=== PATIENT | female | born 1980 | race Caucasian/White ===

== ENCOUNTER 2016-05-08 22:50 | Emergency (ER) | payer OTHER ==
[2016-05-08 22:57] VITALS: RESP 18
[2016-05-08] MEDS ORDERED: ONDANSETRON 4 MG/2 ML VIAL IVP STA (23:06)
[2016-05-08] MEDS ORDERED: MAG HYDROX/AL HYDROX/SIMETH 30 ML, HYOSCYAMINE ELIXIR 10 ML, CIMETIDINE HCL 300 MG PO STA ×3 (23:06)
[2016-05-08] MEDS ORDERED: SODIUM CHLORIDE 0.9% 1,000 ML IV STA (23:06)
--- NOTE | 2016-05-08 23:08 | ED ---
Abdominal Pain HPI - General Chief Complaint: Abdominal Pain Stated Complaint: abdominal pain Time Seen by Provider: 05/08/16 23:01 Source: patient, RN notes reviewed Mode of arrival: ambulatory Limitations: no limitations - History of Present Illness Initial Comments: 36-year-old female presents emergency department chief complaint of epigastric and right upper quadrant abdominal pain. Patient states she's had this for about a week. Patient has a history of acid reflux. She states that since that her typical acid reflux just discontinuing burning pain in sharp stabbing pains. Patient states she's been nauseated without any vomiting. Patient denies any high fevers. Patient states that she seems to be getting worse so she thought that she reevaluated. Patient states that she tried her and after medication with no improvement to her symptoms. Patient states that she was concerned due to her continued pain and discomfort so she thought that she should be evaluated.Patient denies any recent fever, chills, shortness of breath , chest pain, back pain, vomiting, numbness or tingling, dysuria or hematuria, constipation or diarrhea, headaches or visual changes, or any other current symptoms. - Related Data Home Medications Medication Instructions Recorded Confirmed Ibuprofen [Motrin] 800 mg PO DAILY 09/07/13 05/08/16 Lisinopril [Zestril] 10 mg PO DAILY 09/07/13 05/08/16 Triamterene/Hydrochlorothiazid 1 tab PO DAILY 09/07/13 05/08/16 [Triamterene-Hctz 37.5-25 mg Tb] Vitamin B Complex 1 cap PO DAILY 09/30/13 05/08/16 Atenolol [Tenormin] 50 mg PO DAILY 05/08/16 05/08/16 Omeprazole 40 mg PO DAILY 05/08/16 05/08/16 Simethicone [Gas-X] 250 mg PO QAM 05/08/16 05/08/16 Allergies Allergy/AdvReac Type Severity Reaction Status Date / Time No Known Allergies Allergy Verified 05/08/16 23:12 Review of Systems ROS Statement: Those systems with pertinent positive or pertinent negative responses have been documented in the HPI. ROS Other: All systems not noted in ROS Statement are negative. Past Medical History Past Medical History: GERD/Reflux, Hypertension Additional Past Medical History / Comment(s): irregular menses History of Any Multi-Drug Resistant Organisms: None Reported Past Surgical History: Section, Tubal Ligation Past Anesthesia/Blood Transfusion Reactions: Motion Sickness Past Psychological History: No Psychological Hx Reported Smoking Status: Current every day smoker Past Alcohol Use History: None Reported Past Drug Use History: None Reported General Exam - General Exam Comments Initial Comments: General: The patient is awake and alert, in no distress, and does not appear acutely ill. Eye: Pupils are equal, round and reactive to light, extra-ocular movements are intact; there is normal conjunctiva bilaterally. No signs of icterus. Ears, nose, mouth and throat: There are moist mucous membranes and no oral lesions. Neck: The neck is supple, there is no tenderness. Cardiovascular: There is a regular rate and rhythm. No murmur, rub or gallop is appreciated. Respiratory: Lungs are clear to auscultation, respirations are non-labored, breath sounds are equal. No wheezes, stridor, rales, or rhonchi. Gastrointestinal: Soft, non-distended, tenderness in the right upper quadrant of the abdomen without masses or organomegaly noted. There is no rebound or guarding present. No CVA tenderness. Bowel sounds are unremarkable. Back: There is no tenderness to palpation in the midline. There is no obvious deformity. No rashes noted. Musculoskeletal: Normal ROM, no tenderness, There is no pedal edema. There is no calf tenderness or swelling. Sensation intact. Pulses equal bilaterally 2+. Neurological: CN II-XII intact, There are no obvious motor or sensory deficits. Coordination appears grossly intact. Speech is normal. Skin: Skin is warm and dry and no rashes or lesions are noted. Psychiatric: Cooperative, appropriate mood & affect, normal judgment. Limitations: no limitations Course Vital Signs 05/08/16 22:55 Temperature 98.3 F Pulse Rate 98 Respiratory 18 Rate Blood Pressure 143/67 O2 Sat by Pulse 97 Oximetry - Reevaluation(s) Reevaluation #1: 05/09/16 01:11 Patient was reassessed and states that she is feeling better. Medical Decision Making - Medical Decision Making 36-year-old female presents emergency Department chief complaint of right upper quadrant abdominal pain. At this time patient's ultrasound and lab work and x- rays are reviewed. This time patient does appear to have cholelithiasis with sludge. We discussed this and there is no white count there is no fever or there is no signs of acute cholecystitis. This time she can go home which she needs close follow-up with surgery. We did discuss return parameters were discussed this could worsen and she could eventually need to have surgery. The patient stated that she understood she does feel comfortable discharging home and all her questions have been answered. She will be discharged. - Lab Data Result diagrams: 05/08/16 23:55 05/08/16 23:55 Lab Results 05/08/16 05/08/16 05/08/16 Range/Units 23:50 23:55 23:55 WBC 7.8 (3.8-10.6) k/uL RBC 5.07 (3.80-5.40) m/uL Hgb 14.7 (11.4-16.0) gm/dL Hct 44.1 (34.0-46.0) % MCV 87.1 (80.0-100.0) fL MCH 28.9 (25.0-35.0) pg MCHC 33.2 (31.0-37.0) g/dL RDW 12.2 (11.5-15.5) % Plt Count 221 (150-450) k/uL Neutrophils % 57 % Lymphocytes % 32 % Monocytes % 5 % Eosinophils % 3 % Basophils % 0 % Neutrophils # 4.5 (1.3-7.7) k/uL Lymphocytes # 2.5 (1.0-4.8) k/uL Monocytes # 0.4 (0-1.0) k/uL Eosinophils # 0.2 (0-0.7) k/uL Basophils # 0.0 (0-0.2) k/uL Sodium 139 (137-145) mmol/L Potassium 4.0 (3.5-5.1) mmol/L Chloride 106 (98-107) mmol/L Carbon Dioxide 22 (22-30) mmol/L Anion Gap 11 mmol/L BUN 9 (7-17) mg/dL Creatinine 0.80 (0.52-1.04) mg/dL Est GFR (MDRD) Af Amer >60 (>60 ml/min/1.73 sqM) Est GFR (MDRD) Non-Af >60 (>60 ml/min/1.73 sqM) Glucose 99 (74-99) mg/dL Calcium 9.7 (8.4-10.2) mg/dL Total Bilirubin 0.4 (0.2-1.3) mg/dL AST 26 (14-36) U/L ALT 46 (9-52) U/L Alkaline Phosphatase 66 (38-126) U/L Total Protein 7.1 (6.3-8.2) g/dL Albumin 4.2 (3.5-5.0) g/dL Amylase 51 (30-110) U/L Lipase 112 (23-300) U/L Urine Color Yellow Urine Appearance Cloudy H (Clear) Urine pH 5.5 (5.0-8.0) Ur Specific [place] 1.012 (1.001-1.035) Urine Protein Negative (Negative) Urine Glucose (UA) Negative (Negative) Urine Ketones Negative (Negative) Urine Blood Small H (Negative) Urine Nitrate Negative (Negative) Urine Bilirubin Negative (Negative) Urine Urobilinogen <2.0 (<2.0) mg/dL Ur Leukocyte Esterase Negative (Negative) Urine RBC 7 H (0-5) /hpf Urine WBC 6 H (0-5) /hpf Ur Squamous Epith Cells 4 (0-4) /hpf Urine Bacteria Moderate H (None) /hpf Urine Mucus Rare H (None) /hpf - Radiology Data Radiology results: report reviewed, image reviewed Disposition Clinical Impression: Cholelithiasis, GERD (gastroesophageal reflux disease) Disposition: HOME SELF-CARE Condition: Stable Instructions: Gallstones (ED), Gastroesophageal Reflux Disease (ED) Additional Instructions: Please use medication as discussed. Please follow up with family doctor if symptoms have not improved over the next two days. Please return to the emergency room if your symptoms increase or worsen or for any other concerns. Referrals: Chel Mayes MD [Primary Care Provider] - 1-2 days Sandy Hernandez DO [Doctor of Osteopathic Medicine] - 1-2 days Time of Disposition: 01:12
[2016-05-09 00:04] LABS: Appearance,Urine Cloudy (Clear); Bacteria,Urine Moderate /hpf; Bilirubin,Urine Negative (Negative); Glucose,Urine (UA) Negative (Negative); Ketones,Urine Negative (Negative); Leukocyte Esterase,Urine Negative (Negative); Mucus,Urine Rare /hpf; Nitrite,Urine Negative (Negative); PH, Urine 5.5 (5.0-8.0); Particle Count 14798; Protein,Urine Negative (Negative); RBC,Urine 7 /hpf (0-5); Specific Gravity,Urine 1.012 (1.001-1.035); Squamous Epithelial Cell,Urine 4 /hpf (0-4); UA Billing (MACRO vs. MICRO) MICRO; Urobilinogen,Urine <2.0 mg/dL (<2.0); WBC,Urine 6 /hpf (0-5)
[2016-05-09 00:06] LABS: Basophils % (A) 0 %; CH 29.5; Eosinophils # (A) 0.2 k/uL (0-0.7); Eosinophils % (A) 3 %; HCT 44.1 % (34.0-46.0); HDW 2.34; HGB 14.7 gm/dL (11.4-16.0); Luc # (Auto) 0.19; Luc % (Auto) 2; Lymphocytes # (A) 2.5 k/uL (1.0-4.8); Lymphocytes % (A) 32 %; MCH 28.9 pg (25.0-35.0); MCHC 33.2 g/dL (31.0-37.0); MCV 87.1 fL (80.0-100.0); Mean Platelet Volume 7.1; Monocytes # (A) 0.4 k/uL (0-1.0); Monocytes % (A) 5 %; Neutrophils # (A) 4.5 k/uL (1.3-7.7); Neutrophils % (A) 57 %; RBC 5.07 m/uL (3.80-5.40); RDW 12.2 % (11.5-15.5); WBC 7.8 k/uL (3.8-10.6); WBC (Perox) 7.79
[2016-05-09 00:22] LABS: ALT 46 U/L (9-52); AST 26 U/L (14-36); Alkaline Phosphatase 66 U/L (38-126); Amylase 51 U/L (30-110); Anion Gap 11 mmol/L; Blood Urea Nitrogen 9 mg/dL (7-17); Calcium 9.7 mg/dL (8.4-10.2); Carbon Dioxide 22 mmol/L (22-30); Chloride 106 mmol/L (98-107); Glucose 99 mg/dL (74-99); Non-African American GFR(MDRD) >60 (>60 ml/min/1.73 sqM); Sodium 139 mmol/L (137-145); Total Bilirubin 0.4 mg/dL (0.2-1.3); Total Protein 7.1 g/dL (6.3-8.2)
--- NOTE | 2016-05-09 00:47 | XR ---
EXAM: XR Abdomen Complete, 2 or More frontal Views. CLINICAL HISTORY: Reason: Pain TECHNIQUE: Frontal views of the abdomen/pelvis with upright view of the abdomen. COMPARISON: No relevant prior studies available. FINDINGS: Gastrointestinal tract: Nonspecific bowel gas pattern. No dilation. Bones/joints: Mild to moderate degenerative changes in the visualized osseous structures.. IMPRESSION: Nonspecific bowel gas pattern
--- NOTE | 2016-05-09 01:02 | US ---
EXAM: US Abdomen Limited, Right Upper Quadrant. CLINICAL HISTORY: Abdominal Pain TECHNIQUE: Real-time ultrasound of the right upper quadrant with image documentation. COMPARISON: No relevant prior studies available. FINDINGS: Liver: Unremarkable. No mass. No intrahepatic bile duct dilation. Gallbladder: Large amount of sludge mixed with stones filling nearly the entire gallbladder. Gallbladder wall measures about 3 mm in maximal thickness. Common bile duct: Unremarkable as visualized. No stones. No dilation. Pancreas: Unremarkable as visualized. Right kidney: Right kidney measures about 10 cm in long axis. No stones. No hydronephrosis. IMPRESSION: Large amount of sludge mixed with stones filling nearly the entire gallbladder.
[2016-05-09 01:12] VITALS: BP 144/54; PULSE 88; TEMP 98.8
== END 2016-05-09 01:14 | disposition home or self-care (01) ==
LOC: EC 22:50
DX: K80.20 Calculus of gallbladder without cholecystitis without obstruction (principal); K21.9 Gastro-esophageal reflux disease without esophagitis; Z79.899 Other long term (current) drug therapy; I10 Essential (primary) hypertension; F17.200 Nicotine dependence, unspecified, uncomplicated
CPT/HCPCS: 36415; 80053; 82150; 83690; 85025; 81001; 87040; 74020; 76705; 96374; 96361 ×2; 99284; J2405

== ENCOUNTER 2016-09-13 21:22 | Inpatient (IN) | payer OTHER ==
[2016-09-13] MEDS ORDERED: ACETAMINOPHEN TAB 500 MG TAB PO STA (22:00)
[2016-09-13] MEDS ORDERED: SULFAMETH-TMP DS STARTER PACK 2 TAB BTL PO STA (22:01)
[2016-09-13 22:39] LABS: Anion Gap 12 mmol/L; Basophils # (A) 0.1 k/uL (0-0.2); Basophils % (A) 0 %; Blood Urea Nitrogen 10 mg/dL (7-17); CH 28.5; CHCM 34.4; Carbon Dioxide 22 mmol/L (22-30); Chloride 103 mmol/L (98-107); Eosinophils % (A) 0 %; Glucose 121 mg/dL (74-99); HCT 43.8 % (34.0-46.0); HDW 2.48; HGB 15.4 gm/dL (11.4-16.0); Luc # (Auto) 0.05; Luc % (Auto) 0; Lymphocytes # (A) 0.5 k/uL (1.0-4.8); Lymphocytes % (A) 3 %; MCH 29.4 pg (25.0-35.0); MCHC 35.2 g/dL (31.0-37.0); MCV 83.5 fL (80.0-100.0); Mean Platelet Volume 7.2; Monocytes # (A) 0.4 k/uL (0-1.0); Monocytes % (A) 3 %; Neutrophils % (A) 94 %; Non-African American GFR(MDRD) >60 (>60 ml/min/1.73 sqM); Potassium 4.9 mmol/L (3.5-5.1); RBC 5.25 m/uL (3.80-5.40); RDW 12.6 % (11.5-15.5); Sodium 137 mmol/L (137-145); WBC 17.1 k/uL (3.8-10.6); WBC (Perox) 16.08
[2016-09-13] MEDS ORDERED: VANCOMYCIN 1,000 MG in SODIUM CHLORIDE 0.9% 250 ML IVPB STA (22:57)
--- NOTE | 2016-09-13 23:39 | ED ---
General Adult HPI - General Chief complaint: Skin/Abscess/Foreign Body Stated complaint: Cellulitis Time Seen by Provider: 09/13/16 21:38 Source: patient Mode of arrival: ambulatory Limitations: no limitations - History of Present Illness Initial comments: Jasmina Nur is a 36-year-old female who presents to the ED for evaluation of cellulitis of the right lower extremity. Patient reports that yesterday she was on the ground in her kitchen running extension cord through her cabinet. She reports that when she woke this morning she noticed redness of her foot. She has a history of cellulitis which is required hospital admission and IV antibiotics in the past so she immediately wrapped her foot to control the swelling. She reports that throughout the day the erythema has spread from her ankle up her calf, which prompted her to come to the emergency department for further evaluation. She reports that she has felt chilled throughout the day today, she denies any fevers, nausea, vomiting, abdominal pain or change in bowel or bladder habits. She reports her last cellulitis is greater than 2 years ago. She denies any trauma to the foot or toenails. She denies any recent injuries or infections. - Related Data Home Medications Medication Instructions Recorded Confirmed Ibuprofen [Motrin] 800 mg PO DAILY 09/07/13 09/13/16 Lisinopril [Zestril] 10 mg PO DAILY 09/07/13 09/13/16 Triamterene/Hydrochlorothiazid 1 tab PO DAILY 09/07/13 09/13/16 [Triamterene-Hctz 37.5-25 mg Tb] Vitamin B Complex 1 cap PO DAILY 09/30/13 09/13/16 Atenolol [Tenormin] 50 mg PO DAILY 05/08/16 09/13/16 Omeprazole 40 mg PO DAILY 05/08/16 09/13/16 Simethicone [Gas-X] 250 mg PO QAM 05/08/16 09/13/16 Allergies Allergy/AdvReac Type Severity Reaction Status Date / Time No Known Allergies Allergy Verified 09/13/16 21:37 Review of Systems ROS Statement: Those systems with pertinent positive or pertinent negative responses have been documented in the HPI. ROS Other: All systems not noted in ROS Statement are negative. Constitutional: Reports: chills Respiratory: Denies: cough Cardiovascular: Denies: chest pain, palpitations Endocrine: Reports: fatigue Gastrointestinal: Denies: nausea, vomiting Genitourinary: Denies: urgency, dysuria Musculoskeletal: Denies: back pain Skin: Reports: rash, lesions, change in color Neurological: Denies: weakness, confusion Psychiatric: Denies: anxiety, depression Hematological/Lymphatic: Denies: easy bleeding, easy bruising Past Medical History Past Medical History: GERD/Reflux, Hypertension, Skin Disorder Additional Past Medical History / Comment(s): irregular menses, cellulitis History of Any Multi-Drug Resistant Organisms: None Reported Past Surgical History: Section, Tubal Ligation Additional Past Surgical History / Comment(s): novasure Past Anesthesia/Blood Transfusion Reactions: Motion Sickness Past Psychological History: No Psychological Hx Reported Smoking Status: Current every day smoker Past Alcohol Use History: None Reported Past Drug Use History: None Reported General Exam Limitations: no limitations General appearance: alert, in no apparent distress, other (Morbidly obese, appears older than stated age.) Head exam: Present: atraumatic, normocephalic, normal inspection Eye exam: Present: normal appearance, PERRL, EOMI. Absent: scleral icterus, conjunctival injection, periorbital swelling ENT exam: Present: normal exam, mucous membranes moist Neck exam: Present: normal inspection. Absent: tenderness, meningismus, lymphadenopathy Respiratory exam: Present: wheezes (Scant wheezes) Cardiovascular Exam: Present: regular rate, normal rhythm, normal heart sounds. Absent: systolic murmur, diastolic murmur, rubs, gallop, clicks GI/Abdominal exam: Present: soft, normal bowel sounds. Absent: distended, tenderness, guarding, rebound, rigid Rectal exam: Present: deferred Extremities exam: Present: full ROM Neurological exam: Present: alert, oriented X3, CN II-XII intact Skin exam: Present: warm, erythema, petechiae, other (Erythema of the right lower extremity circumferentially to the mid calf. Some petechia noted. Skin is edematous and weeping clear fluid.). Absent: normal color Course Vital Signs 09/13/16 09/13/16 21:23 23:00 Temperature 100.2 F H 98.9 F Pulse Rate 78 95 Respiratory 16 Rate Blood Pressure 150/85 138/78 O2 Sat by Pulse 100 99 Oximetry - Reevaluation(s) Reevaluation #1: Patient was reevaluated and a surgical marking pen was used to marked the borders of cellulitis. 09/13/16 22:29 Reevaluation #2: Patient stating she is anxious to leave, advised her that we are still awaiting lab results. 09/13/16 23:00 Reevaluation #3: Laboratory results were discussed with patient who is agreeable with plan for discharge home. There's been no change in the cellulitis since admission. Patient continues to complain of feeling chilled and feverish. 09/13/16 23:20 Medical Decision Making - Medical Decision Making Patient seen and examined, history obtained from patient Physical exam concerning for cellulitis circumferentially of the right lower extremity to the mid calf with petechia Patient noted to have an oral temperature of 100.2, no tachycardia or other surgical. Noted Labs including blood cultures were ordered Patient eager for discharge home, by mouth Bactrim ordered upon arrival. With plan for likely discharge. Labs his altered with significant leukocytosis with neutrophilia, these results were discussed with the patient was agreeable to plan for admission for IV antibiotics. IV vancomycin was ordered given patient's history of MRSA infections. She care was discussed with Monica of the [facility] hospitalist group. She except the patient to observation for rapidly progressing cellulitis requiring IV antibiotics. - Lab Data Result diagrams: 09/13/16 22:10 09/13/16 22:10 Lab Results 09/13/16 09/13/16 Range/Units 22:10 22:10 WBC 17.1 H (3.8-10.6) k/uL RBC 5.25 (3.80-5.40) m/uL Hgb 15.4 (11.4-16.0) gm/dL Hct 43.8 (34.0-46.0) % MCV 83.5 (80.0-100.0) fL MCH 29.4 (25.0-35.0) pg MCHC 35.2 (31.0-37.0) g/dL RDW 12.6 (11.5-15.5) % Plt Count 206 (150-450) k/uL Neutrophils % 94 % Lymphocytes % 3 % Monocytes % 3 % Eosinophils % 0 % Basophils % 0 % Neutrophils # 16.0 H (1.3-7.7) k/uL Lymphocytes # 0.5 L (1.0-4.8) k/uL Monocytes # 0.4 (0-1.0) k/uL Eosinophils # 0.0 (0-0.7) k/uL Basophils # 0.1 (0-0.2) k/uL Sodium 137 (137-145) mmol/L Potassium 4.9 (3.5-5.1) mmol/L Chloride 103 (98-107) mmol/L Carbon Dioxide 22 (22-30) mmol/L Anion Gap 12 mmol/L BUN 10 (7-17) mg/dL Creatinine 1.00 (0.52-1.04) mg/dL Est GFR (MDRD) Af Amer >60 (>60 ml/min/1.73 sqM) Est GFR (MDRD) Non-Af >60 (>60 ml/min/1.73 sqM) Glucose 121 H (74-99) mg/dL Calcium 10.0 (8.4-10.2) mg/dL Disposition Clinical Impression: Cellulitis of right lower leg Disposition: ADMITTED IP TO THIS HOSP Referrals: Chel Mayes MD [Primary Care Provider] - 1-2 days
[2016-09-13] MEDS ORDERED: NALOXONE 0.4 MG/ML 1 ML VIAL IV PRN (23:53)
[2016-09-14 01:33] VITALS: BMI 45.9
[2016-09-14] MEDS: IBUPROFEN 400 MG TAB PO PRN ×3 (01:58→17:29)
[2016-09-14] MEDS: ACETAMINOPHEN TAB 325 MG TAB PO PRN ×2 (04:10→21:14)
[2016-09-14 07:08] LABS: Basophils % (A) 0 %; CH 27.8; Eosinophils % (A) 0 %; HCT 40.1 % (34.0-46.0); HDW 2.43; HGB 13.5 gm/dL (11.4-16.0); Luc # (Auto) 0.07; Luc % (Auto) 1; Lymphocytes # (A) 0.6 k/uL (1.0-4.8); Lymphocytes % (A) 5 %; MCH 28.6 pg (25.0-35.0); MCHC 33.8 g/dL (31.0-37.0); MCV 84.7 fL (80.0-100.0); Mean Platelet Volume 7.3; Monocytes # (A) 0.3 k/uL (0-1.0); Monocytes % (A) 2 %; Neutrophils # (A) 13.1 k/uL (1.3-7.7); Neutrophils % (A) 93 %; RBC 4.73 m/uL (3.80-5.40); RDW 12.3 % (11.5-15.5); WBC 14.1 k/uL (3.8-10.6); WBC (Perox) 14.84
[2016-09-14 07:27] LABS: Calcium 8.8 mg/dL (8.4-10.2); Potassium 4.3 mmol/L (3.5-5.1)
[2016-09-14] MEDS: ATENOLOL 50 MG TAB PO SCH (11:38)
[2016-09-14] MEDS: B COMPLEX-VIT C-VIT E-ZINC 1 EACH TAB PO SCH (11:38)
[2016-09-14] MEDS: LISINOPRIL 10 MG TAB PO SCH (11:38)
[2016-09-14] MEDS: SIMETHICONE 80 MG CHEWABLE PO SCH (11:39)
[2016-09-14] MEDS: PANTOPRAZOLE 40 MG TABLET PO SCH (11:39)
[2016-09-14] MEDS: TRIAMTERENE-HCTZ 37.5-25MG 1 EACH TAB PO SCH (11:39)
[2016-09-14] MEDS: ceFAZolin 2 GM in SODIUM CHLORIDE 0.9% 100 ML IVPB SCH (15:28)
--- NOTE | 2016-09-14 18:10 | P.HPIM ---
History of Present Illness H&P Date: 09/14/16 His is a 36-year-old female that came in to the hospital with complains of right lower extremity tenderness and erythema. Patient states that she was working on her home trying to punch a whole into the wall in order to rule out a cable through. Patient was laying on the ground for about 3 hours States that she woke up the next day after that noted significant erythema and tenderness to her right lower extremity associated with edema Patient also stated to have some chills however no recorded fevers were noted Patient denies having any headaches blurry vision chest pain difficulty breathing diarrhea nausea vomiting urinary urgency or frequency Patient has had a previous episode of cellulitis however states that it was not MRSA The demarcated line was noted however slightly worsen since admission States to be feeling slightly better however does report some tenderness in the right lower extremity Review of Systems All systems: negative (Noted in HPI) Past Medical History Past Medical History: GERD/Reflux, Hypertension, Skin Disorder Additional Past Medical History / Comment(s): irregular menses, cellulitis History of Any Multi-Drug Resistant Organisms: None Reported Past Surgical History: Section, Tubal Ligation Additional Past Surgical History / Comment(s): lexis Past Anesthesia/Blood Transfusion Reactions: Motion Sickness Past Psychological History: No Psychological Hx Reported Smoking Status: Current every day smoker - Past Family History Mother Family Medical History: Diabetes Mellitus, Myocardial Infarction (NM) Additional Family Medical History / Comment(s): Lupus Medications and Allergies Home Medications Medication Instructions Recorded Confirmed Type Ibuprofen [Motrin] 800 mg PO DAILY 09/07/13 09/13/16 History Lisinopril [Zestril] 10 mg PO DAILY 09/07/13 09/13/16 History Triamterene/Hydrochlorothiazid 1 tab PO DAILY 09/07/13 09/13/16 History [Triamterene-Hctz 37.5-25 mg Tb] Vitamin B Complex 1 cap PO DAILY 09/30/13 09/13/16 History Atenolol [Tenormin] 50 mg PO DAILY 05/08/16 09/13/16 History Omeprazole 40 mg PO DAILY 05/08/16 09/13/16 History Simethicone [Gas-X] 250 mg PO QAM 05/08/16 09/13/16 History Allergies Allergy/AdvReac Type Severity Reaction Status Date / Time No Known Allergies Allergy Verified 09/13/16 21:37 Physical Exam Vitals: Vital Signs Temp Pulse Pulse Resp BP BP Pulse Ox 09/14/16 16:00 77 20 09/14/16 14:50 97.2 F L 77 20 114/57 96 09/14/16 07:00 97.7 F 75 16 101/53 96 09/14/16 02:50 91 16 09/14/16 01:13 98.6 F 80 16 97 09/14/16 00:58 98.2 F 91 16 114/55 98 09/14/16 00:56 99.2 F 89 16 145/56 99 09/13/16 23:00 98.9 F 95 16 138/78 99 09/13/16 21:23 100.2 F H 78 150/85 100 Intake and Output 09/14/16 09/14/16 09/14/16 06:59 14:59 22:59 Intake Total 125 480 Balance 125 480 Intake: Intake, IV Titration 125 Amount Vancomycin 1,000 mg In 125 Sodium Chloride 0.9% 250 ml @ 125 mls/hr IVPB ONCE STA Rx#:[id number] Oral 480 Other: Voiding Method Toilet Toilet Toilet # Voids 2 3 Weight 114 kg 114 kg Patient Weight 09/15/16 06:59 Weight 114 kg Physical exam Gen. appearance oriented 3 in no distress Neck is supple no JVD Lungs good air entry clear to auscultation no rhonchi or wheezing Heart S1-S2 heard regular rate and rhythm no murmurs appreciated Abdomen is soft nontender no organomegaly bowel sounds are intact Neurologically cranial nerves II-12 grossly intact no focal motor or sensory deficits noted Skin right lower extremity erythema on the pretibial surface circumferential tender to palpation warm to touch no skin breakdown is noted no entry site are noted Results CBC & Chem 7: 09/14/16 06:40 09/14/16 06:40 Labs: Abnormal Lab Results - Last 24 Hours (Table) 09/13/16 09/13/16 09/14/16 Range/Units 22:10 22:10 06:40 WBC 17.1 H (3.8-10.6) k/uL Neutrophils # 16.0 H (1.3-7.7) k/uL Lymphocytes # 0.5 L (1.0-4.8) k/uL Sodium 134 L (137-145) mmol/L Carbon Dioxide 17 L (22-30) mmol/L Creatinine 1.28 H (0.52-1.04) mg/dL Glucose 121 H 107 H (74-99) mg/dL 09/14/16 Range/Units 06:40 WBC 14.1 H (3.8-10.6) k/uL Neutrophils # 13.1 H (1.3-7.7) k/uL Lymphocytes # 0.6 L (1.0-4.8) k/uL Sodium (137-145) mmol/L Carbon Dioxide (22-30) mmol/L Creatinine (0.52-1.04) mg/dL Glucose (74-99) mg/dL Thrombosis Risk Factor Assmnt - Choose All That Apply Any of the Below Risk Factors Present?: Yes Each Factor Represents 1 point: Obesity (BMI >25), Swollen legs (current) Other Risk Factors: No Other congenital or acquired thrombophilia - If yes, enter type in comment: No Thrombosis Risk Factor Assessment Total Risk Factor Score: 2 Thrombosis Risk Factor Assessment Level: Low Risk Assessment and Plan Plan: #1 sepsis secondary to right lower extremity cellulitis #2 acute kidney injury is likely secondary to above #3 hypertension #4 obesity #5 ongoing tobacco use #6 depression Plan We'll change antibiotics to IV cefazolin Discussed cleaning her right lower extremity and thereafter wrapping the leg We'll reevaluate the patient in the a.m. Blood culture is pending Home medications were reconciled DVT prophylaxis
[2016-09-15] MEDS: IBUPROFEN 400 MG TAB PO PRN (00:33)
[2016-09-15] MEDS: ceFAZolin 2 GM in SODIUM CHLORIDE 0.9% 100 ML IVPB SCH ×3 (00:34→15:37)
[2016-09-15] MEDS: ACETAMINOPHEN TAB 325 MG TAB PO PRN ×3 (05:45→17:30)
[2016-09-15] MEDS: ATENOLOL 50 MG TAB PO SCH (07:36)
[2016-09-15] MEDS: PANTOPRAZOLE 40 MG TABLET PO SCH (07:36)
[2016-09-15] MEDS: LISINOPRIL 10 MG TAB PO SCH (07:36)
[2016-09-15] MEDS: SIMETHICONE 80 MG CHEWABLE PO SCH (07:36)
[2016-09-15] MEDS: TRIAMTERENE-HCTZ 37.5-25MG 1 EACH TAB PO SCH (07:36)
[2016-09-15] MEDS: B COMPLEX-VIT C-VIT E-ZINC 1 EACH TAB PO SCH (07:36)
[2016-09-15 10:28] LABS: Anion Gap 11 mmol/L; Blood Urea Nitrogen 16 mg/dL (7-17); Carbon Dioxide 17 mmol/L (22-30); Chloride 109 mmol/L (98-107); Glucose 153 mg/dL (74-99); Non-African American GFR(MDRD) 54 (>60 ml/min/1.73 sqM); Potassium 3.9 mmol/L (3.5-5.1); Sodium 137 mmol/L (137-145)
[2016-09-15] MEDS: SILVER sulfADIAZINE Cream 400 GM 1 APPLIC APPLIC TOPICAL SCH ×2 (12:31→21:10)
--- NOTE | 2016-09-15 12:41 | US ---
EXAMINATION TYPE: US venous doppler duplex LE RT DATE OF EXAM: 09/15/2016 12:15 PM COMPARISON: NONE CLINICAL HISTORY: rule out dvt. SIDE PERFORMED: Right TECHNIQUE: The lower extremity deep venous system is examined utilizing real time linear array sonog jim with graded compression, doppler sonography and color-flow sonography. VESSELS IMAGED: External Iliac Vein (EIV) Common Femoral Vein Deep Femoral Vein Greater Saphenous Vein * Femoral Vein Popliteal Vein Small Saphenous Vein * Proximal Calf Veins (* superficial vessels) Morbidly obese patient. Right Leg: Negative for DVT IMPRESSION: Normal exam. No evidence of deep venous thrombosis in the right leg.
[2016-09-15] MEDS: DIAZEPAM 5 MG/ML 2 ML SYRINGE IVP PRN ×2 (14:56→21:06)
--- NOTE | 2016-09-15 15:12 | P.PN ---
Subjective His is a 36-year-old female that came in to the hospital with complains of right lower extremity tenderness and erythema. Patient states that she was working on her home trying to punch a hole into the wall in order to rule out a cable through. Patient was laying on the ground for about 3 hours States that she woke up the next day after that noted significant erythema and tenderness to her right lower extremity associated with edema Patient also stated to have some chills however no recorded fevers were noted Patient denies having any headaches blurry vision chest pain difficulty breathing diarrhea nausea vomiting urinary urgency or frequency Patient has had a previous episode of cellulitis however states that it was not MRSA The demarcated line was noted however slightly worsen since admission States to be feeling slightly better however does report some tenderness in the right lower extremity 09/15/2016 States the pain is improved however erythema appears to be stable according the patient No fevers chills headaches nausea vomiting diarrhea reported Objective - Vital Signs Vital signs: Vital Signs Temp 98.2 F 09/15/16 07:00 Pulse 69 09/15/16 08:00 Resp 16 09/15/16 08:00 BP 105/53 09/15/16 15:02 Pulse Ox 94 L 09/15/16 07:00 Intake & Output 09/14/16 09/15/16 09/15/16 18:59 06:59 18:59 Intake Total 480 1120 480 Balance 480 1120 480 Weight 114 kg 114 kg Intake: Oral 480 1120 480 Other: Voiding Method Toilet Toilet Toilet # Voids 3 2 4 # Bowel Movements 0 0 - Exam Physical exam Gen. appearance oriented 3 in no distress Neck is supple no JVD Lungs good air entry clear to auscultation no rhonchi or wheezing Heart S1-S2 heard regular rate and rhythm no murmurs appreciated Abdomen is soft nontender no organomegaly bowel sounds are intact Neurologically cranial nerves II-12 grossly intact no focal motor or sensory deficits noted Skin erythema and tender to palpation in the right lower extremity with some associated edema around the ankle within the demarcated line drawn yesterday - Labs CBC & Chem 7: 09/14/16 06:40 09/15/16 09:49 Labs: Abnormal Lab Results - Last 24 Hours (Table) 09/15/16 Range/Units 09:49 Chloride 109 H (98-107) mmol/L Carbon Dioxide 17 L (22-30) mmol/L Creatinine 1.13 H (0.52-1.04) mg/dL Glucose 153 H (74-99) mg/dL Microbiology - Last 24 Hours (Table) 09/13/16 22:10 Blood Culture - Preliminary Blood No Growth after 24 hours Assessment and Plan Plan: #1 sepsis secondary to right lower extremity cellulitis #2 acute kidney injury is likely secondary to above #3 hypertension #4 obesity #5 ongoing tobacco use #6 depression Plan Continue IV antibiotic for another 24 hours Venous Doppler to rule out DVT Elevate legs Discussed with the patient continue ongoing care vitals are stable
[2016-09-15 20:32] VITALS: RESP 18
[2016-09-16] MEDS: DIAZEPAM 5 MG/ML 2 ML SYRINGE IVP PRN ×2 (04:26→15:31)
[2016-09-16] MEDS: ceFAZolin 2 GM in SODIUM CHLORIDE 0.9% 100 ML IVPB SCH ×4 (06:07→10:31)
[2016-09-16 07:46] VITALS: BP 123/69; PULSE 76; TEMP 98.8
[2016-09-16] MEDS: PANTOPRAZOLE 40 MG TABLET PO SCH (07:48)
[2016-09-16] MEDS: LISINOPRIL 10 MG TAB PO SCH (07:48)
[2016-09-16] MEDS: ATENOLOL 50 MG TAB PO SCH (07:48)
[2016-09-16] MEDS: TRIAMTERENE-HCTZ 37.5-25MG 1 EACH TAB PO SCH (07:48)
[2016-09-16] MEDS: SIMETHICONE 80 MG CHEWABLE PO SCH (07:49)
[2016-09-16] MEDS: B COMPLEX-VIT C-VIT E-ZINC 1 EACH TAB PO SCH (07:51)
[2016-09-16 08:03] LABS: Basophils % (A) 0 %; Eosinophils % (A) 0 %; HCT 38.9 % (34.0-46.0); HDW 2.63; HGB 13.3 gm/dL (11.4-16.0); Luc % (Auto) 2; Lymphocytes # (A) 1.7 k/uL (1.0-4.8); Lymphocytes % (A) 12 %; MCH 28.4 pg (25.0-35.0); MCHC 34.2 g/dL (31.0-37.0); MCV 82.8 fL (80.0-100.0); Mean Platelet Volume 7.8; Monocytes # (A) 0.4 k/uL (0-1.0); Monocytes % (A) 3 %; Neutrophils # (A) 10.9 k/uL (1.3-7.7); Neutrophils % (A) 82 %; RDW 12.5 % (11.5-15.5); WBC 13.3 k/uL (3.8-10.6); WBC (Perox) 14.01
[2016-09-16] MEDS: ACETAMINOPHEN TAB 325 MG TAB PO PRN (08:35)
[2016-09-16] MEDS ORDERED: VANCOMYCIN 2,000 MG in SODIUM CHLORIDE 0.9% 500 ML IVPB ONE (12:00)
[2016-09-16] MEDS: SILVER sulfADIAZINE Cream 400 GM 1 APPLIC APPLIC TOPICAL SCH (12:13)
--- NOTE | 2016-09-16 18:22 | P.DS ---
Providers Date of admission: 09/13/16 23:53 Attending physician: Seferino Bonilla [facility] Course: His is a 36-year-old female that came in to the hospital with complains of right lower extremity tenderness and erythema. Patient states that she was working on her home trying to punch a hole into the wall in order to rule out a cable through. Patient was laying on the ground for about 3 hours States that she woke up the next day after that noted significant erythema and tenderness to her right lower extremity associated with edema Patient also stated to have some chills however no recorded fevers were noted Patient denies having any headaches blurry vision chest pain difficulty breathing diarrhea nausea vomiting urinary urgency or frequency Patient has had a previous episode of cellulitis however states that it was not MRSA The demarcated line was noted however slightly worsen since admission States to be feeling slightly better however does report some tenderness in the right lower extremity 09/15/2016 States the pain is improved however erythema appears to be stable according the patient No fevers chills headaches nausea vomiting diarrhea reported (2017 Patient states that her tenderness is significantly improved - Exam Physical exam Gen. appearance oriented 3 in no distress Neck is supple no JVD Lungs good air entry clear to auscultation no rhonchi or wheezing Heart S1-S2 heard regular rate and rhythm no murmurs appreciated Abdomen is soft nontender no organomegaly bowel sounds are intact Neurologically cranial nerves II-12 grossly intact no focal motor or sensory deficits noted Skin erythema and tender to palpation in the right lower extremity improved from previous evaluations Assessment and Plan Plan: #1 sepsis secondary to right lower extremity cellulitis #2 acute kidney injury is likely secondary to above. Improved on discharge #3 hypertension #4 obesity #5 ongoing tobacco use #6 depression Patient received 3 days of IV antibiotic therapy She'll be discharged on Ceftin and doxycycline for total 10 days is to follow- up with her primary care physician did discuss the patient's cellulitis worsens needs to come back to the hospital for IV antibiotic therapy Plan - Discharge Summary New Discharge Prescriptions: New Cefuroxime Axetil [Ceftin] 500 mg PO BID #20 tab Doxycycline Monohydrate [Monodox] 100 mg PO Q12HR #20 cap traMADol HCL [Ultram] 50 mg PO Q6HR PRN #20 tab PRN Reason: Muscle Pain Continue Triamterene/Hydrochlorothiazid [Triamterene-Hctz 37.5-25 mg Tb] 1 tab PO DAILY Ibuprofen [Motrin] 800 mg PO DAILY Lisinopril [Zestril] 10 mg PO DAILY Vitamin B Complex 1 cap PO DAILY Atenolol [Tenormin] 50 mg PO DAILY Omeprazole 40 mg PO DAILY Simethicone [Gas-X] 250 mg PO QAM Discharge Medication List Ibuprofen [Motrin] 800 mg PO DAILY 09/07/13 [History] Lisinopril [Zestril] 10 mg PO DAILY 09/07/13 [History] Triamterene/Hydrochlorothiazid [Triamterene-Hctz 37.5-25 mg Tb] 1 tab PO DAILY 09/07/13 [History] Vitamin B Complex 1 cap PO DAILY 09/30/13 [History] Atenolol [Tenormin] 50 mg PO DAILY 05/08/16 [History] Omeprazole 40 mg PO DAILY 05/08/16 [History] Simethicone [Gas-X] 250 mg PO QAM 05/08/16 [History] Cefuroxime Axetil [Ceftin] 500 mg PO BID #20 tab 09/16/16 [Rx] Doxycycline Monohydrate [Monodox] 100 mg PO Q12HR #20 cap 09/16/16 [Rx] traMADol HCL [Ultram] 50 mg PO Q6HR PRN #20 tab 09/16/16 [Rx] Follow up Appointment(s)/Referral(s): Chel Mayes MD [Primary Care Provider] - 09/19/16 1:50 pm Patient Instructions/Handouts: Cefuroxime (By mouth), Doxycycline (By mouth), Tramadol (By mouth), Cellulitis (DC), Menorrhagia (GEN) Discharge Disposition: HOME SELF-CARE
== END 2016-09-16 16:10 | disposition home or self-care (01) | DRG 872 ==
LOC: EC 21:22 → 5MS5E 23:53
PROVIDERS: ADMIT Hospitalist; ATTEND Hospitalist
DX: A41.9 Sepsis, unspecified organism (principal); N17.9 Acute kidney failure, unspecified; L03.115 Cellulitis of right lower limb; I10 Essential (primary) hypertension; F32.9 Major depressive disorder, single episode, unspecified; E66.9 Obesity, unspecified; F17.200 Nicotine dependence, unspecified, uncomplicated; K21.9 Gastro-esophageal reflux disease without esophagitis; Z79.899 Other long term (current) drug therapy; Z82.49 Family history of ischemic heart disease and other diseases of the circulatory system
CPT/HCPCS: 36415; 80048; 85025; 87040; 96365; 96366; 99285

== ENCOUNTER 2016-10-13 21:28 | Emergency (ER) | payer OTHER ==
[2016-10-13 21:36] VITALS: BP 138/78; PULSE 79; RESP 20; TEMP 97.9
--- NOTE | 2016-10-13 21:53 | ED ---
Skin/Abscess/FB HPI - General Chief complaint: Skin/Abscess/Foreign Body Stated complaint: cellulitis right leg Source: patient Mode of arrival: ambulatory Limitations: no limitations - History of Present Illness Initial comments: Patient is a 36-year-old female who presents for evaluation for open wounds on the front of her right lower extremity. Past medical history as below. Patient has a history of cellulitis and was admitted in early September 2016 for IV antibiotics. She had 2 days of IV antibiotics and improved and was discharged home on a course of by mouth antibiotics with Silvadene cream. She's been compliant with that and completed the entire course of antibiotics. She states that the cellulitis is greatly improved. There is no longer any warmth to the right lower extremity. However her right lower surety remained swollen and there is an open nonhealing wound to the anterior right lower tremors. She states that she has no systemic symptoms at this time. She denies fever, chills , headache and changes of vision, URI symptoms, shortness breath, cough, chest pain, decreased appetite, nausea vomiting diarrhea, pain or burning with urination. - Related Data Home Medications Medication Instructions Recorded Confirmed Ibuprofen [Motrin] 800 mg PO DAILY 09/07/13 10/13/16 Lisinopril [Zestril] 10 mg PO DAILY 09/07/13 10/13/16 Triamterene/Hydrochlorothiazid 1 tab PO DAILY 09/07/13 10/13/16 [Triamterene-Hctz 37.5-25 mg Tb] Vitamin B Complex 1 cap PO DAILY 09/30/13 10/13/16 Atenolol [Tenormin] 50 mg PO DAILY 05/08/16 10/13/16 Omeprazole 40 mg PO DAILY 05/08/16 10/13/16 Simethicone [Gas-X] 250 mg PO QAM 05/08/16 10/13/16 Previous Rx's Medication Instructions Recorded SILVER sulfADIAZINE Cream 1 applic TOPICAL BID #28 gram 10/13/16 [Silvadene 1% Cream] Sulfamethox-Tmp 800-160Mg [Bactrim 1 tab PO Q12HR #14 tab 10/13/16 DS 800-160 mg] Allergies Allergy/AdvReac Type Severity Reaction Status Date / Time No Known Allergies Allergy Verified 10/13/16 22:01 Review of Systems ROS Statement: Those systems with pertinent positive or pertinent negative responses have been documented in the HPI. ROS Other: All systems not noted in ROS Statement are negative. Past Medical History Past Medical History: GERD/Reflux, Hypertension, Skin Disorder Additional Past Medical History / Comment(s): irregular menses, cellulitis History of Any Multi-Drug Resistant Organisms: None Reported Past Surgical History: Section, Tubal Ligation Additional Past Surgical History / Comment(s): novasure Past Anesthesia/Blood Transfusion Reactions: Motion Sickness Past Psychological History: No Psychological Hx Reported Smoking Status: Current every day smoker - Past Family History Mother Family Medical History: Diabetes Mellitus, Myocardial Infarction ([place]) Additional Family Medical History / Comment(s): Lupus General Exam Limitations: no limitations General appearance: alert, in no apparent distress, other (Nontoxic appearing) Head exam: Present: atraumatic, normocephalic, normal inspection Eye exam: Present: normal appearance, PERRL, EOMI. Absent: scleral icterus, conjunctival injection, periorbital swelling ENT exam: Present: normal exam, mucous membranes moist Neck exam: Present: normal inspection. Absent: tenderness, meningismus, lymphadenopathy Respiratory exam: Present: normal lung sounds bilaterally. Absent: respiratory distress, wheezes, rales, rhonchi, stridor Cardiovascular Exam: Present: regular rate, normal rhythm, normal heart sounds. Absent: systolic murmur, diastolic murmur, rubs, gallop, clicks GI/Abdominal exam: Present: soft, normal bowel sounds. Absent: distended, tenderness, guarding, rebound, rigid Extremities exam: Present: normal inspection, full ROM, normal capillary refill. Absent: tenderness, pedal edema, joint swelling, calf tenderness Back exam: Present: normal inspection Neurological exam: Present: alert, oriented X3, CN II-XII intact Psychiatric exam: Present: normal affect, normal mood Skin exam: Present: warm, dry, intact, normal color, other (There is a nonhealing wound to the anterior right lower extremity. No warmth to the touch. No purulent drainage. No pain with palpation of the right lower extremity. There is some swelling to the right lower extremity when compared to left. Distal pulses are intact. No petechia.). Absent: rash Course Vital Signs 10/13/16 21:33 Temperature 97.9 F Pulse Rate 79 Respiratory 20 Rate Blood Pressure 138/78 O2 Sat by Pulse 98 Oximetry Medical Decision Making - Medical Decision Making Patient is a 36-year-old female who presents for evaluation for nonhealing wound to the right lower cellulitis and swelling to the right lower extremity. Her right lower extremity is not consistent with cellulitis at this time. However, there is a nonhealing wound without purulent drainage and swelling to right lower extremity despite elevating her right lower extremity. Because of her history of recurrent cellulitis and MRSA, will order basic labs. Will also order a venous duplex the right lower extremity. She has no history of DVT or pulmonary embolisms. Has f/u appointment with her PCP November 08. 2249: Laboratory studies reviewed. No leukocytosis. Rest of her labs are within normal limits. Awaiting venous duplex of her lower extremity. 2344: Venous duplex negative for acute DVT. Discussed with the patient. Reevaluated the right lower extremity and it is not warm to the touch. However , the patient is a high risk patient with history of recurrent cellulitis. Unable to follow-up with her primary care physician in a timely fashion. Because of which, we will discharge home with a course of Bactrim and we'll also provide her with Silvadene. Patient states that she knows the signs and symptoms of cellulitis very well and will return immediately if she develops any of those signs. She otherwise will continue to elevate the right lower extremity. Will also contact her primary care physician tomorrow to see if she can be evaluated sooner. Pt's BP noted to be slightly elevated but she has a known hx of HTN. Discussed further signs and symptoms on when to return to the emergency department for further evaluation. Comfortable with discharge home and will follow-up with her primary care physician. - Lab Data Result diagrams: 10/13/16 22:10 10/13/16 22:10 Lab Results 10/13/16 10/13/16 Range/Units 22:10 22:10 WBC 9.3 (3.8-10.6) k/uL RBC 4.94 (3.80-5.40) m/uL Hgb 13.8 (11.4-16.0) gm/dL Hct 42.2 (34.0-46.0) % MCV 85.5 (80.0-100.0) fL MCH 28.0 (25.0-35.0) pg MCHC 32.8 (31.0-37.0) g/dL RDW 14.3 (11.5-15.5) % Plt Count 231 (150-450) k/uL Neutrophils % 56 % Lymphocytes % 34 % Monocytes % 5 % Eosinophils % 3 % Basophils % 1 % Neutrophils # 5.2 (1.3-7.7) k/uL Lymphocytes # 3.1 (1.0-4.8) k/uL Monocytes # 0.5 (0-1.0) k/uL Eosinophils # 0.2 (0-0.7) k/uL Basophils # 0.1 (0-0.2) k/uL Sodium 139 (137-145) mmol/L Potassium 4.5 (3.5-5.1) mmol/L Chloride 108 H (98-107) mmol/L Carbon Dioxide 21 L (22-30) mmol/L Anion Gap 10 mmol/L BUN 11 (7-17) mg/dL Creatinine 0.90 (0.52-1.04) mg/dL Est GFR (MDRD) Af Amer >60 (>60 ml/min/1.73 sqM) Est GFR (MDRD) Non-Af >60 (>60 ml/min/1.73 sqM) Glucose 99 (74-99) mg/dL Calcium 9.5 (8.4-10.2) mg/dL Total Bilirubin 0.5 (0.2-1.3) mg/dL AST 28 (14-36) U/L ALT 33 (9-52) U/L Alkaline Phosphatase 72 (38-126) U/L Total Protein 7.2 (6.3-8.2) g/dL Albumin 4.1 (3.5-5.0) g/dL Disposition Clinical Impression: Non-healing wound, Swelling of right lower extremity Disposition: HOME SELF-CARE Condition: Good Instructions: Cellulitis (ED) Prescriptions: SILVER sulfADIAZINE Cream [Silvadene 1% Cream] 1 applic TOPICAL BID #28 gram Sulfamethox-Tmp 800-160Mg [Bactrim DS 800-160 mg] 1 tab PO Q12HR #14 tab Referrals: Chel Mayes MD [Primary Care Provider] - 1-2 days
[2016-10-13 22:25] LABS: Basophils # (A) 0.1 k/uL (0-0.2); Basophils % (A) 1 %; CH 28.7; CHCM 33.8; Eosinophils # (A) 0.2 k/uL (0-0.7); Eosinophils % (A) 3 %; HCT 42.2 % (34.0-46.0); HDW 2.47; HGB 13.8 gm/dL (11.4-16.0); Luc # (Auto) 0.19; Luc % (Auto) 2; Lymphocytes # (A) 3.1 k/uL (1.0-4.8); Lymphocytes % (A) 34 %; MCHC 32.8 g/dL (31.0-37.0); MCV 85.5 fL (80.0-100.0); Mean Platelet Volume 7.6; Monocytes # (A) 0.5 k/uL (0-1.0); Monocytes % (A) 5 %; Neutrophils # (A) 5.2 k/uL (1.3-7.7); Neutrophils % (A) 56 %; RBC 4.94 m/uL (3.80-5.40); RDW 14.3 % (11.5-15.5); WBC 9.3 k/uL (3.8-10.6); WBC (Perox) 9.47
[2016-10-13 22:34] LABS: Anion Gap 10 mmol/L; Calcium 9.5 mg/dL (8.4-10.2); Carbon Dioxide 21 mmol/L (22-30); Chloride 108 mmol/L (98-107); Glucose 99 mg/dL (74-99); Non-African American GFR(MDRD) >60 (>60 ml/min/1.73 sqM); Sodium 139 mmol/L (137-145); Total Bilirubin 0.5 mg/dL (0.2-1.3); Total Protein 7.2 g/dL (6.3-8.2)
[2016-10-13 22:45] LABS: Blood Urea Nitrogen 11 mg/dL (7-17); Potassium 4.5 mmol/L (3.5-5.1)
[2016-10-13 22:46] LABS: ALT 33 U/L (9-52); AST 28 U/L (14-36); Alkaline Phosphatase 72 U/L (38-126)
--- NOTE | 2016-10-13 23:29 | US ---
EXAM: US Duplex Right Lower Extremity Veins CLINICAL HISTORY: Reason: Pain, cellulitis TECHNIQUE: Real-time ultrasound scan of the veins of the right lower extremity with color Doppler flow, spectral waveform analysis and compression. COMPARISON: US 09/15/16. FINDINGS: Deep veins: Unremarkable. No DVT in the visualized common femoral, femoral, proximal deep femoral or popliteal veins. The veins are compressible with normal color flow and augmentation. Superficial veins: Unremarkable. No thrombus in the visualized great saphenous vein. Soft tissues: No acute findings. No popliteal cyst. IMPRESSION: No evidence of DVT in the right lower extremity.
== END 2016-10-13 23:57 | disposition home or self-care (01) ==
LOC: EC 21:28
DX: S80.921A Unspecified superficial injury of right lower leg, initial encounter (principal); X58.XXXA Exposure to other specified factors, initial encounter; Z79.899 Other long term (current) drug therapy; K21.9 Gastro-esophageal reflux disease without esophagitis; I10 Essential (primary) hypertension; F17.200 Nicotine dependence, unspecified, uncomplicated; Z86.14 Personal history of Methicillin resistant Staphylococcus aureus infection
CPT/HCPCS: 36415; 80053; 85025; 99283

== ENCOUNTER 2022-01-08 13:45 | Emergency (ER) | payer OTHER ==
[2022-01-08 13:53] VITALS: TEMP 98
[2022-01-08 14:43] LABS: Basophils # (A) 0.1 k/uL (0-0.2); Basophils % (A) 1 %; Eosinophils # (A) 0.2 k/uL (0-0.7); Eosinophils % (A) 2 %; HCT 44.2 % (34.0-46.0); Lymphocytes # (A) 2.6 k/uL (1.0-4.8); Lymphocytes % (A) 29 %; MCH 29.6 pg (25.0-35.0); MCHC 33.9 g/dL (31.0-37.0); MCV 87.4 fL (80.0-100.0); Mean Platelet Volume 8.9; Monocytes # (A) 0.5 k/uL (0-1.0); Monocytes % (A) 6 %; Neutrophils # (A) 5.6 k/uL (1.3-7.7); Neutrophils % (A) 62 %; Platelet Count 230 k/uL (150-450); RBC 5.06 m/uL (3.80-5.40); RDW 12.6 % (11.5-15.5); WBC 9.1 k/uL (3.8-10.6)
[2022-01-08 14:54] LABS: African American GFR (CKD) >90 (>60 ml/min/1.73 sqM); Anion Gap 11 mmol/L; Blood Urea Nitrogen 8 mg/dL (7-17); Carbon Dioxide 24 mmol/L (22-30); Chloride 100 mmol/L (98-107); Glucose 105 mg/dL (74-99); Magnesium 1.6 mg/dL (1.6-2.3); Non-African American GFR(CKD) >90 (>60 ml/min/1.73 sqM); Potassium 4.3 mmol/L (3.5-5.1); Sodium 135 mmol/L (137-145)
--- NOTE | 2022-01-08 15:06 | XR ---
EXAMINATION TYPE: XR chest 2V DATE OF EXAM: 01/08/2022 COMPARISON: None INDICATION: Fluttering in chest facial numbness TECHNIQUE: Frontal and lateral views of the chest are obtained. FINDINGS: The heart size is normal. The pulmonary vasculature is normal. The lungs are clear. IMPRESSION: 1. No acute pulmonary process.
--- NOTE | 2022-01-08 15:34 | ED ---
General Adult HPI - General Chief complaint: Neuro Symptoms/Deficit Stated complaint: facial numbness Time Seen by Provider: 01/08/22 14:20 Source: patient, EMS, RN notes reviewed, old records reviewed Mode of arrival: EMS Limitations: no limitations - History of Present Illness Initial comments: Patient is a 41-year-old female who presents emergency Department with acute onset of mild left-sided facial numbness following feeling a sharp and sedation on top of her head. Symptoms have all since resolved. Occurred approximately 12:50 PM this afternoon. States the numbness is primarily in the left side of her labs. Denies any nausea or vomiting. Also states she felt a fluttering sensation in her chest. Denies any chest pain, shortness of breath. Denies any abdominal pain, nausea, vomiting. Is a smoker. His no other acute complaints at this time. Patient is asymptomatic at this time. Presents for further evaluation. No history of blood thinner use. - Related Data Home Medications Medication Instructions Recorded Confirmed Ibuprofen [Motrin] 800 mg PO DAILY 09/07/13 10/13/16 Triamterene/Hydrochlorothiazid 1 tab PO DAILY 09/07/13 10/13/16 [Triamterene-Hctz 37.5-25 mg Tb] lisinopriL [Zestril] 10 mg PO DAILY 09/07/13 10/13/16 Vitamin B Complex 1 cap PO DAILY 09/30/13 10/13/16 Omeprazole 40 mg PO DAILY 05/08/16 10/13/16 Simethicone [Gas-X] 250 mg PO QAM 05/08/16 10/13/16 atenoloL [Tenormin] 50 mg PO DAILY 05/08/16 10/13/16 Previous Rx's Medication Instructions Recorded SILVER sulfADIAZINE Cream 1 applic TOPICAL BID #28 gram 10/13/16 [Silvadene 1% Cream] Sulfamethox-Tmp 800-160Mg [Bactrim 1 tab PO Q12HR #14 tab 10/13/16 DS 800-160 mg] Allergies Allergy/AdvReac Type Severity Reaction Status Date / Time No Known Allergies Allergy Verified 10/13/16 22:01 Review of Systems ROS Statement: Those systems with pertinent positive or pertinent negative responses have been documented in the HPI. Review of Systems: CONST: Denies fever EYES: Denies blurry vision ENT: Denies nasal congestion C/V: Denies Chest pain RESP: Denies shortness of breath GI: Denies abdominal pain : Denies dysuria SKIN: Denies rash. MSK: Denies joint pain. NEURO: Denies headache ROS Other: All systems not noted in ROS Statement are negative. Past Medical History Past Medical History: GERD/Reflux, Hypertension, Skin Disorder Additional Past Medical History / Comment(s): irregular menses, cellulitis History of Any Multi-Drug Resistant Organisms: None Reported Past Surgical History: Section, Tubal Ligation Additional Past Surgical History / Comment(s): novasure Past Anesthesia/Blood Transfusion Reactions: Motion Sickness Past Psychological History: No Psychological Hx Reported Smoking Status: Current every day smoker Past Alcohol Use History: None Reported Past Drug Use History: None Reported - Past Family History Mother Family Medical History: Diabetes Mellitus, Myocardial Infarction ([place]) Additional Family Medical History / Comment(s): Lupus General Exam - General Exam Comments Initial Comments: General: Appears in no acute distress. HEAD: Normal with no signs of head trauma. EYES: PERRLA, EOMI, conjunctiva normal, no discharge. Pupils 3 mm equal bilaterally. ENT: Hearing grossly intact, normal oropharynx. RESPIRATORY: Clear breath sounds bilaterally. No wheezes, rales, or rhonchi. C/V: Regular rate and rhythm. S1 and S2 auscultated, no edema, peripheral pulses 2+ and intact throughout ABD: Abd is soft, nontender, nondistended EXT: Normal range of motion, no obvious deformity SKIN: No rashes or lesions observed on exposed skin. NEURO: Alert and Oriented 4. NIH of 0. GCS is 15. Indicates without difficulty. Limitations: no limitations Course Vital Signs 01/08/22 13:48 Temperature 98.0 F Pulse Rate 85 Respiratory 20 Rate Blood Pressure 142/58 O2 Sat by Pulse 99 Oximetry Medical Decision Making - Medical Decision Making Based on the patient's presentation and physical exam, she has no symptoms at this time. Did recommend a CT brain as well as basic labs and screening EKG. Vital signs are within acceptable limits. She was in agreement this plan. Laboratory studies are within acceptable limits. Chest x-ray shows no acute cardiopulmonary process. EKG shows no acute ischemic changes. Patient's CT brain revealed no acute process. There are nonspecific white matter findings that could include demyelinating disease. Recommend MRI. On reevaluation, patient remains asymptomatic. We did discuss her results. I would like her to follow up outpatient with neurology. She was in agreement this plan. She will attempt to see her PCP in the next 1-3 days and obtain referral for neurology evaluation and possible MRI. Strict return precautions were discussed. I answered all questions that she had. I instructed the patient to follow up with their PCP in the next 1-3 days. I explained that the patient should return to the emergency department if they experience any worsening symptoms. Strict return precautions were discussed with the patient. The patient expressed understanding of these instructions. I answered all questions that the patient had. The patient was discharged home in good condition with their prescriptions and follow up information. - Lab Data Result diagrams: 01/08/22 14:33 01/08/22 14:33 Lab Results 01/08/22 01/08/22 Range/Units 14:33 14:33 WBC 9.1 (3.8-10.6) k/uL RBC 5.06 (3.80-5.40) m/uL Hgb 15.0 (11.4-16.0) gm/dL Hct 44.2 (34.0-46.0) % MCV 87.4 (80.0-100.0) fL MCH 29.6 (25.0-35.0) pg MCHC 33.9 (31.0-37.0) g/dL RDW 12.6 (11.5-15.5) % Plt Count 230 (150-450) k/uL MPV 8.9 Neutrophils % 62 % Lymphocytes % 29 % Monocytes % 6 % Eosinophils % 2 % Basophils % 1 % Neutrophils # 5.6 (1.3-7.7) k/uL Lymphocytes # 2.6 (1.0-4.8) k/uL Monocytes # 0.5 (0-1.0) k/uL Eosinophils # 0.2 (0-0.7) k/uL Basophils # 0.1 (0-0.2) k/uL Sodium 135 L (137-145) mmol/L Potassium 4.3 (3.5-5.1) mmol/L Chloride 100 (98-107) mmol/L Carbon Dioxide 24 (22-30) mmol/L Anion Gap 11 mmol/L BUN 8 (7-17) mg/dL Creatinine 0.76 (0.52-1.04) mg/dL Est GFR (CKD-EPI)AfAm >90 (>60 ml/min/1.73 sqM) Est GFR (CKD-EPI)NonAf >90 (>60 ml/min/1.73 sqM) Glucose 105 H (74-99) mg/dL Calcium 9.0 (8.4-10.2) mg/dL Magnesium 1.6 (1.6-2.3) mg/dL - EKG Data -: EKG Interpreted by Me EKG Comments: 12-lead Electrocardiogram Interpretation Note EKG was reviewed and interpreted by myself. 12-lead ECG performed at 1351 is interpreted by me as revealing normal sinus rhythm at a rate of 86 beats per minute. [place] is normal. MS interval is 160 ms, QRS duration is 62 ms, QTc is 379 ms.. There were no ST or T wave abnormalities to suggest myocardial ischemia or injury. R wave progression across the precordium was satisfactory. B y my interpretation this EKG is non-diagnostic for acute ischemia. Disposition Clinical Impression: White matter changes Narrative: concern for demyelinating disease Disposition: HOME SELF-CARE Condition: Good Additional Instructions: Follow up with PCP for neurology referral for outpatient MRI to further work up the CT brain findings. Is patient prescribed a controlled substance at d/c from ED?: No Referrals: Sam Briones MD [Primary Care Provider] - 1-2 days Time of Disposition: 16:00
--- NOTE | 2022-01-08 15:40 | CT ---
EXAMINATION TYPE: CT brain wo con DATE OF EXAM: 01/08/2022 COMPARISON: None. HISTORY: headaches, facial numbness CT DLP: 1080.4 mGycm. Automated Exposure Control for Dose Reduction was Utilized. TECHNIQUE: CT scan of the head is performed without contrast. FINDINGS: There is no acute intracranial hemorrhage, mass effect, or midline shift identified. The ventricles and sulci are within normal limits in size. Areas of low attenuation scattered throughout the bilateral white matter are thought present. Air-fluid level and visualized portion of left maxil valeria sinus. Nasal septum is deviated to right of midline. The globes are intact bilaterally. Low-lyin g cerebellar tonsils project to level of the foramen magnum without greater than 5 mm inferior displa cement. IMPRESSION: No acute intracranial hemorrhage or midline shift is seen. Mild scattered areas of low-a ttenuation in the white matter is nonspecific finding, demyelinating disease is in the differential i n patient of this age. MRI follow-up should be considered based on clinical correlation which can bet ter delineate and characterize white matter changes.
[2022-01-08 16:29] VITALS: BP 112/76; PULSE 65; RESP 18
[2022-01-08 16:29] LABS: Amorphous Sediment,Urine Occasional /hpf; Appearance,Urine Cloudy (Clear); Bacteria,Urine Moderate /hpf; Bilirubin,Urine Negative (Negative); Blood,Urine Negative (Negative); Color,Urine Yellow; Glucose,Urine (UA) Negative (Negative); Hyaline Casts,Urine 1 /lpf (0-2); Ketones,Urine Negative (Negative); Leukocyte Esterase,Urine Negative (Negative); Mucus,Urine Rare /hpf; Nitrite,Urine Negative (Negative); Protein,Urine Negative (Negative); RBC,Urine 2 /hpf (0-5); Specific Gravity,Urine 1.006 (1.001-1.035); Squamous Epithelial Cell,Urine 10 /hpf (0-4); Urobilinogen,Urine <2.0 mg/dL (<2.0); WBC,Urine 3 /hpf (0-5)
== END 2022-01-08 16:29 | disposition home or self-care (01) ==
LOC: EC 13:45
DX: R90.82 White matter disease, unspecified (principal); K21.9 Gastro-esophageal reflux disease without esophagitis; I10 Essential (primary) hypertension; F17.200 Nicotine dependence, unspecified, uncomplicated; Z79.899 Other long term (current) drug therapy
CPT/HCPCS: 36415; 70450; 71046; 80048; 81001; 83735; 85025; 93005; 99285

== ENCOUNTER 2022-01-11 21:25 | Emergency (ER) | payer OTHER ==
[2022-01-11 21:31] VITALS: RESP 18; TEMP 98
[2022-01-11] MEDS ORDERED: PROCHLORPERAZINE INJ 10 MG/2 ML VIAL IVP STA (22:00)
[2022-01-11] MEDS ORDERED: SODIUM CHLORIDE 0.9% 1,000 ML IV STA (22:00)
--- NOTE | 2022-01-11 22:02 | ED ---
Neuro HPI - General Chief Complaint: Neck Pain/Injury Stated Complaint: L sided facial numbness,irregular heart rate Time Seen by Provider: 01/11/22 21:30 Source: patient, RN notes reviewed, old records reviewed Mode of arrival: ambulatory Limitations: no limitations - History of Present Illness Is the patient presenting with stroke symptoms?: No -: days(s) Initial Comments: This is a 41-year-old female DF for evaluation. Patient has left-sided paresthesias facial numbness. Symptoms of same. Positive nausea elevated blood pressure not feeling well. Patient has not been feeling well for a few days recent ER visit 3 days ago and nothing has improved since then. Patient's a primary care earlier today and symptoms are progressing. Location: left face History of same: Yes Place: home Severity: mild Quality: weak, numb, tingling Improves With: none Worsens With: none Context: gradual onset Associated Symptoms: denies other symptoms Treatments Prior to Arrival: none - Related Data Home Medications: Home Medications Medication Instructions Recorded Confirmed Ibuprofen [Motrin] 800 mg PO DAILY 09/07/13 10/13/16 Triamterene/Hydrochlorothiazid 1 tab PO DAILY 09/07/13 10/13/16 [Triamterene-Hctz 37.5-25 mg Tb] lisinopriL [Zestril] 10 mg PO DAILY 09/07/13 10/13/16 Vitamin B Complex 1 cap PO DAILY 09/30/13 10/13/16 Omeprazole 40 mg PO DAILY 05/08/16 10/13/16 Simethicone [Gas-X] 250 mg PO QAM 05/08/16 10/13/16 atenoloL [Tenormin] 50 mg PO DAILY 05/08/16 10/13/16 Previous Rx's Medication Instructions Recorded SILVER sulfADIAZINE Cream 1 applic TOPICAL BID #28 gram 10/13/16 [Silvadene 1% Cream] Sulfamethox-Tmp 800-160Mg [Bactrim 1 tab PO Q12HR #14 tab 10/13/16 DS 800-160 mg] Allergies/Adverse Reactions: Allergies Allergy/AdvReac Type Severity Reaction Status Date / Time No Known Allergies Allergy Verified 01/11/22 21:31 Review of Systems ROS Statement: Those systems with pertinent positive or pertinent negative responses have been documented in the HPI. ROS Other: All systems not noted in ROS Statement are negative. General Exam Limitations: no limitations General appearance: alert, in no apparent distress Head exam: Present: atraumatic, normocephalic, normal inspection Eye exam: Present: normal appearance, PERRL, EOMI. Absent: scleral icterus, conjunctival injection, periorbital swelling ENT exam: Present: normal exam, mucous membranes moist Neck exam: Present: normal inspection. Absent: tenderness, meningismus, lymphadenopathy Respiratory exam: Present: normal lung sounds bilaterally. Absent: respiratory distress, wheezes, rales, rhonchi, stridor Cardiovascular Exam: Present: regular rate, normal rhythm, normal heart sounds. Absent: systolic murmur, diastolic murmur, rubs, gallop, clicks GI/Abdominal exam: Present: soft, normal bowel sounds. Absent: distended, tenderness, guarding, rebound, rigid Extremities exam: Present: normal inspection, full ROM, normal capillary refill. Absent: tenderness, pedal edema, joint swelling, calf tenderness Back exam: Present: normal inspection Neurological exam: Present: alert, oriented X3, CN II-XII intact Psychiatric exam: Present: normal affect, normal mood Skin exam: Present: warm, dry, intact, normal color. Absent: rash Stroke MDM - Lab Data Result diagrams: 01/11/22 22:27 01/11/22 22:27 Lab Results 01/11/22 01/11/22 01/11/22 Range/Units 22:27 22:27 22:27 WBC 9.7 (3.8-10.6) k/uL RBC 5.31 (3.80-5.40) m/uL Hgb 15.2 (11.4-16.0) gm/dL Hct 45.7 (34.0-46.0) % MCV 86.1 (80.0-100.0) fL MCH 28.6 (25.0-35.0) pg MCHC 33.2 (31.0-37.0) g/dL RDW 12.6 (11.5-15.5) % Plt Count 219 (150-450) k/uL MPV 8.3 Neutrophils % 60 % Lymphocytes % 29 % Monocytes % 5 % Eosinophils % 3 % Basophils % 1 % Neutrophils # 5.8 (1.3-7.7) k/uL Lymphocytes # 2.8 (1.0-4.8) k/uL Monocytes # 0.5 (0-1.0) k/uL Eosinophils # 0.3 (0-0.7) k/uL Basophils # 0.1 (0-0.2) k/uL PT 9.9 (9.0-12.0) sec INR 0.9 (<1.2) APTT 24.1 (22.0-30.0) sec Sodium 135 L (137-145) mmol/L Potassium 3.9 (3.5-5.1) mmol/L Chloride 102 (98-107) mmol/L Carbon Dioxide 19 L (22-30) mmol/L Anion Gap 14 mmol/L BUN 13 (7-17) mg/dL Creatinine 0.81 (0.52-1.04) mg/dL Est GFR (CKD-EPI)AfAm >90 (>60 ml/min/1.73 sqM) Est GFR (CKD-EPI)NonAf 90 (>60 ml/min/1.73 sqM) Glucose 123 H (74-99) mg/dL Calcium 9.4 (8.4-10.2) mg/dL Phosphorus 5.2 H (2.5-4.5) mg/dL Magnesium 1.8 (1.6-2.3) mg/dL Total Bilirubin 0.4 (0.2-1.3) mg/dL AST 35 (14-36) U/L ALT 24 (4-34) U/L Alkaline Phosphatase 77 (38-126) U/L Troponin I (0.000-0.034) ng/mL Total Protein 7.3 (6.3-8.2) g/dL Albumin 4.4 (3.5-5.0) g/dL 01/11/22 Range/Units 22:27 WBC (3.8-10.6) k/uL RBC (3.80-5.40) m/uL Hgb (11.4-16.0) gm/dL Hct (34.0-46.0) % MCV (80.0-100.0) fL MCH (25.0-35.0) pg MCHC (31.0-37.0) g/dL RDW (11.5-15.5) % Plt Count (150-450) k/uL MPV Neutrophils % % Lymphocytes % % Monocytes % % Eosinophils % % Basophils % % Neutrophils # (1.3-7.7) k/uL Lymphocytes # (1.0-4.8) k/uL Monocytes # (0-1.0) k/uL Eosinophils # (0-0.7) k/uL Basophils # (0-0.2) k/uL PT (9.0-12.0) sec INR (<1.2) APTT (22.0-30.0) sec Sodium (137-145) mmol/L Potassium (3.5-5.1) mmol/L Chloride (98-107) mmol/L Carbon Dioxide (22-30) mmol/L Anion Gap mmol/L BUN (7-17) mg/dL Creatinine (0.52-1.04) mg/dL Est GFR (CKD-EPI)AfAm (>60 ml/min/1.73 sqM) Est GFR (CKD-EPI)NonAf (>60 ml/min/1.73 sqM) Glucose (74-99) mg/dL Calcium (8.4-10.2) mg/dL Phosphorus (2.5-4.5) mg/dL Magnesium (1.6-2.3) mg/dL Total Bilirubin (0.2-1.3) mg/dL AST (14-36) U/L ALT (4-34) U/L Alkaline Phosphatase (38-126) U/L Troponin I <0.012 (0.000-0.034) ng/mL Total Protein (6.3-8.2) g/dL Albumin (3.5-5.0) g/dL - NIH Stroke Scale 1a. Level of Consciousness: (0) alert 1b. LOC Questions: (0) answers correctly 1c. LOC Commands: (0) performs tasks correctly 2. Best Gaze: (0) normal 3. Visual: (0) no visual loss 4. Facial Palsy: (0) normal symmetrical movement 5a. Motor Arm Left: (0) no drift 5b. Motor Arm Right: (0) no drift 6a. Motor Leg Left: (0) no drift 6b. Motor Leg Right: (0) no drift 7. Limb Ataxia: (0) absent 8. Sensory: (0) normal 9. Best Language: (0) no aphasia 10. Dysarthria: (0) normal 11. Extinction/Inattention: (0) no abnormality - Medical Decision Making 41 female to the ER for left-sided facial paresthesias numbness and tingling. Patient no acute neurological deficit. Exam is normal. She'll continue to follow-up as an outpatient - EKG Data -: EKG Interpreted by Me (EKG sinus 70 SC 146 QRS 81 QTc 412) Past Medical History Past Medical History: GERD/Reflux, Hypertension, Skin Disorder Additional Past Medical History / Comment(s): irregular menses, cellulitis History of Any Multi-Drug Resistant Organisms: None Reported Past Surgical History: Section, Tubal Ligation Additional Past Surgical History / Comment(s): novasure Past Anesthesia/Blood Transfusion Reactions: Motion Sickness Past Psychological History: No Psychological Hx Reported Smoking Status: Current every day smoker Past Alcohol Use History: None Reported Past Drug Use History: None Reported - Past Family History Mother Family Medical History: Diabetes Mellitus, Myocardial Infarction ([place]) Additional Family Medical History / Comment(s): Lupus Course Vital Signs 01/11/22 21:29 Temperature 98 F Pulse Rate 80 Respiratory 18 Rate Blood Pressure 129/85 O2 Sat by Pulse 97 Oximetry - Reevaluation(s) Reevaluation #1: 01/12/22 00:09 Medical records reviewed Reevaluation #2: 01/12/22 00:09 Patient has no acute complaints Reevaluation #3: 01/12/22 00:09 Patient informed results questions answered Disposition Clinical Impression: Left facial numbness Disposition: HOME SELF-CARE Condition: Good Instructions (If sedation given, give patient instructions): Paresthesia (ED) Is patient prescribed a controlled substance at d/c from ED?: No Referrals: Sam Briones MD [Primary Care Provider] - 1-2 days Time of Disposition: 00:10
[2022-01-11 22:40] LABS: Basophils # (A) 0.1 k/uL (0-0.2); Basophils % (A) 1 %; Eosinophils # (A) 0.3 k/uL (0-0.7); Eosinophils % (A) 3 %; HCT 45.7 % (34.0-46.0); HGB 15.2 gm/dL (11.4-16.0); Lymphocytes # (A) 2.8 k/uL (1.0-4.8); Lymphocytes % (A) 29 %; MCH 28.6 pg (25.0-35.0); MCHC 33.2 g/dL (31.0-37.0); MCV 86.1 fL (80.0-100.0); Mean Platelet Volume 8.3; Monocytes # (A) 0.5 k/uL (0-1.0); Monocytes % (A) 5 %; Neutrophils # (A) 5.8 k/uL (1.3-7.7); Neutrophils % (A) 60 %; Platelet Count 219 k/uL (150-450); RBC 5.31 m/uL (3.80-5.40); RDW 12.6 % (11.5-15.5); WBC 9.7 k/uL (3.8-10.6)
[2022-01-11 23:02] LABS: INR 0.9 (<1.2); Partial Thromboplastin Time 24.1 sec (22.0-30.0); Prothrombin Time 9.9 sec (9.0-12.0)
[2022-01-11 23:07] LABS: ALT 24 U/L (4-34); AST 35 U/L (14-36); African American GFR (CKD) >90 (>60 ml/min/1.73 sqM); Albumin 4.4 g/dL (3.5-5.0); Alkaline Phosphatase 77 U/L (38-126); Anion Gap 14 mmol/L; Blood Urea Nitrogen 13 mg/dL (7-17); Calcium 9.4 mg/dL (8.4-10.2); Carbon Dioxide 19 mmol/L (22-30); Chloride 102 mmol/L (98-107); Glucose 123 mg/dL (74-99); Magnesium 1.8 mg/dL (1.6-2.3); Non-African American GFR(CKD) 90 (>60 ml/min/1.73 sqM); Phosphorus 5.2 mg/dL (2.5-4.5); Sodium 135 mmol/L (137-145); Total Bilirubin 0.4 mg/dL (0.2-1.3); Total Protein 7.3 g/dL (6.3-8.2)
[2022-01-11 23:18] LABS: Potassium 3.9 mmol/L (3.5-5.1)
[2022-01-12 00:24] VITALS: BP 136/86; PULSE 72
== END 2022-01-12 00:24 | disposition home or self-care (01) ==
LOC: EC 21:25
DX: R20.2 Paresthesia of skin (principal); K21.9 Gastro-esophageal reflux disease without esophagitis; I10 Essential (primary) hypertension; F17.200 Nicotine dependence, unspecified, uncomplicated
CPT/HCPCS: 36415; 93005; 80053; 83735; 84100; 84484; 85025; 85610; 85730; 99284; 96374; 96361 ×2; J0780

== ENCOUNTER → 2022-01-16 | Outpatient (CLI) | payer OTHER ==
--- NOTE | 2022-01-16 14:18 | MR ---
PRE AND POSTCONTRAST ENHANCED MRI OF THE BRAIN: CLINICAL HISTORY: White matter changes CONTRAST: GADAVIST 13 ML Multiplanar and multispin-echo imaging of the brain was performed both before and after the administr ation of contrast. The ventricles, basal cisterns and sulci overlying the cerebral convexities are within normal limits. There is no evidence for midline shift or mass effect. Acute intracranial hemorrhage or extra-axial collection is not evident. 4 foci of increased signal are seen within the deep white matter of the right cerebral hemisphere renuka suring up to 7 mm. Within the left cerebral hemisphere and approximately 8-10 lesions of increased si gnal within the deep white matter measuring up to 7.8 mm. Following contrast administration, there is no evidence for pathologic enhancement or enhancing mass. The paranasal sinuses and mastoid air cells are well-aerated. IMPRESSION: Nonspecific lesions of increased signal within the deep white matter of both cerebral hem ispheres which may reflect demyelination. Additional possibilities include chronic small vessel ische cyndi change, vasculopathy, sequela of Lyme's disease among other possibilities. EXAMINATION TYPE: MR brain/cspine wo/w DATE OF EXAM: 01/16/2022 1:41 PM COMPARISON: NONE HISTORY: WHITE MATTER CHANGES, NUMBNESS CONTRAST: The patient was injected with 13 mL intravenous Gadavist gadolinium contrast. Multiplanar MultiSpin echo imaging of the cervical spine was performed. C2-C3: No evidence for degenerative disc disease. No disc bulge/herniation or protrusion. No Canal stenosis. Foramina are patent bilaterally. C3-C4: No evidence for degenerative disc disease. No disc bulge/herniation or protrusion. No Canal stenosis. Foramina are patent bilaterally. C4-C5: No evidence for degenerative disc disease. No disc bulge/herniation or protrusion. No Canal stenosis. Foramina are patent bilaterally. C5-C6: No evidence for degenerative disc disease. No disc bulge/herniation or protrusion. No Canal stenosis. Foramina are patent bilaterally. C6-C7:No evidence for degenerative disc disease. No disc bulge/herniation or protrusion. No Canal s tenosis. Foramina are patent bilaterally. C7-T1: No evidence for degenerative disc disease. No disc bulge/herniation or protrusion. No Canal stenosis. Foramina are patent bilaterally. No cervical spine fracture. There is normal alignment. Cervical spinal cord is of normal signal. C raniovertebral junction relationships are within normal limits. No pathologic enhancement. IMPRESSION: 1. Unremarkable MRI of the cervical spine.
== END | disposition home or self-care (01) ==
LOC: RADMRIMAIN 12:24
PROVIDERS: ATTEND Internal Medicine
DX: R90.82 White matter disease, unspecified (principal)
CPT/HCPCS: 70553; 72156; A9585

== ENCOUNTER 2022-01-20 19:27 | Emergency (ER) | payer OTHER ==
[2022-01-20 19:43] VITALS: RESP 15; TEMP 98.2
[2022-01-20] MEDS ORDERED: SODIUM CHLORIDE 0.9% 1,000 ML IV STA (19:43)
--- NOTE | 2022-01-20 19:44 | ED ---
General Adult HPI - General Chief complaint: Syncope Stated complaint: Heart fluttering, numbness Time Seen by Provider: 01/20/22 19:43 Source: patient, EMS Mode of arrival: EMS Limitations: no limitations - History of Present Illness Initial comments: Patient presents to the ED by ambulance for evaluation. Patient states that she was standing in her kitchen when she suddenly developed "hot flashes" and became lightheaded. Patient states that she also felt her heart "fluttering". Patient states that she felt as though she was about to pass out, but she caught herself, and she denies loss of consciousness. Patient states that she has also felt nauseated and "gassy" for the past few weeks. Patient states that she has had similar episodes over the past couple of weeks. Patient states that she feels much better now. Patient denies trauma or injury, fever or chills, headache, focal numbness/weakness/neuro deficit, visual changes, speech dif ficulty, chest pain or pressure, dyspnea, cough or cold symptoms, syncope, abdominal pain, vomiting or diarrhea, bloody or melanotic stool, dysuria or urinary symptoms, or any other symptoms or complaints. - Related Data Home Medications Medication Instructions Recorded Confirmed Ibuprofen [Motrin] 800 mg PO DAILY 09/07/13 10/13/16 Triamterene/Hydrochlorothiazid 1 tab PO DAILY 09/07/13 10/13/16 [Triamterene-Hctz 37.5-25 mg Tb] lisinopriL [Zestril] 10 mg PO DAILY 09/07/13 10/13/16 Vitamin B Complex 1 cap PO DAILY 09/30/13 10/13/16 Omeprazole 40 mg PO DAILY 05/08/16 10/13/16 Simethicone [Gas-X] 250 mg PO QAM 05/08/16 10/13/16 atenoloL [Tenormin] 50 mg PO DAILY 05/08/16 10/13/16 Previous Rx's Medication Instructions Recorded SILVER sulfADIAZINE Cream 1 applic TOPICAL BID #28 gram 10/13/16 [Silvadene 1% Cream] Sulfamethox-Tmp 800-160Mg [Bactrim 1 tab PO Q12HR #14 tab 10/13/16 DS 800-160 mg] Allergies Allergy/AdvReac Type Severity Reaction Status Date / Time No Known Allergies Allergy Verified 01/20/22 19:32 Review of Systems ROS Statement: Those systems with pertinent positive or pertinent negative responses have been documented in the HPI. ROS Other: All systems not noted in ROS Statement are negative. Past Medical History Past Medical History: GERD/Reflux, Hypertension, Skin Disorder Additional Past Medical History / Comment(s): irregular menses, cellulitis History of Any Multi-Drug Resistant Organisms: None Reported Past Surgical History: Section, Tubal Ligation Additional Past Surgical History / Comment(s): novasure Past Anesthesia/Blood Transfusion Reactions: Motion Sickness Past Psychological History: No Psychological Hx Reported Smoking Status: Current every day smoker Past Alcohol Use History: None Reported Past Drug Use History: None Reported - Past Family History Mother Family Medical History: Diabetes Mellitus, Myocardial Infarction ([place]) Additional Family Medical History / Comment(s): Lupus General Exam Limitations: no limitations General appearance: alert, in no apparent distress Head exam: Present: atraumatic, normocephalic Eye exam: Present: normal appearance, PERRL, EOMI ENT exam: Present: mucous membranes moist Neck exam: Present: other (Trachea is in midline) Respiratory exam: Present: normal lung sounds bilaterally. Absent: respiratory distress, wheezes, rales, rhonchi, stridor Cardiovascular Exam: Present: regular rate, normal rhythm, normal heart sounds, other (Normal radial pulses bilaterally) GI/Abdominal exam: Present: soft. Absent: tenderness, guarding Extremities exam: Absent: tenderness, pedal edema Neurological exam: Present: alert, oriented X3, CN II-XII intact. Absent: motor sensory deficit Psychiatric exam: Present: normal affect, normal mood Skin exam: Present: warm, dry, intact, normal color Course Vital Signs 01/20/22 19:33 Temperature 98.2 F Pulse Rate 78 Respiratory 15 Rate Blood Pressure 146/74 O2 Sat by Pulse 100 Oximetry - Reevaluation(s) Reevaluation #1: 01/20/22 20:49 Patient remains alert and breathing comfortably. Patient continues to have a nonfocal neurological exam. Patient is aware of her test results, and she feels comfortable being discharged home at this time. Patient was counseled about near syncope, and she was clearly explained return and follow-up instructions. Patient was instructed to follow up closely with her primary care provider. Patient feels comfortable with this plan. EKG Findings - EKG Comments: EKG Findings:: Normal sinus rhythm, ventricular rate of 70 bpm, normal VT and QRS intervals, normal QT interval, normal axis, no ST or T-wave abnormality Medical Decision Making - Medical Decision Making Patient's EKG and labs are fairly unremarkable. Patient states that she has had similar symptoms in the past, and she states that she is being worked up by her PCP for the symptoms. Patient's vital signs are reassuring. I do not suspect an emergent medical condition at this time. Will discharge patient home at this time with instructions to follow up closely with her primary care provider. Patient feels comfortable with this plan. - Lab Data Result diagrams: 01/20/22 19:50 01/20/22 19:50 Lab Results 01/20/22 01/20/22 Range/Units 19:50 19:50 WBC 9.4 (3.8-10.6) k/uL RBC 5.36 (3.80-5.40) m/uL Hgb 15.5 (11.4-16.0) gm/dL Hct 46.6 H (34.0-46.0) % MCV 87.0 (80.0-100.0) fL MCH 29.0 (25.0-35.0) pg MCHC 33.3 (31.0-37.0) g/dL RDW 12.6 (11.5-15.5) % Plt Count 250 (150-450) k/uL MPV 7.8 Neutrophils % 65 % Lymphocytes % 25 % Monocytes % 5 % Eosinophils % 2 % Basophils % 1 % Neutrophils # 6.1 (1.3-7.7) k/uL Lymphocytes # 2.3 (1.0-4.8) k/uL Monocytes # 0.5 (0-1.0) k/uL Eosinophils # 0.2 (0-0.7) k/uL Basophils # 0.1 (0-0.2) k/uL Sodium 137 (137-145) mmol/L Potassium 4.2 (3.5-5.1) mmol/L Chloride 107 (98-107) mmol/L Carbon Dioxide 22 (22-30) mmol/L Anion Gap 8 mmol/L BUN 14 (7-17) mg/dL Creatinine 0.78 (0.52-1.04) mg/dL Est GFR (CKD-EPI)AfAm >90 (>60 ml/min/1.73 sqM) Est GFR (CKD-EPI)NonAf >90 (>60 ml/min/1.73 sqM) Glucose 134 H (74-99) mg/dL Calcium 9.3 (8.4-10.2) mg/dL Magnesium 1.9 (1.6-2.3) mg/dL Total Bilirubin 0.2 (0.2-1.3) mg/dL AST 29 (14-36) U/L ALT 24 (4-34) U/L Alkaline Phosphatase 102 (38-126) U/L Total Protein 7.4 (6.3-8.2) g/dL Albumin 4.4 (3.5-5.0) g/dL HCG, Qual Not Detected Disposition Clinical Impression: Near syncope Disposition: HOME SELF-CARE Condition: Stable Instructions (If sedation given, give patient instructions): Near Syncope (ED) Additional Instructions: Return to the ER immediately should you develop worsening dizziness, fainting, any significant pain, shortness of breath, a fever, or new or worsening symptoms. Follow up closely with your primary care provider. Is patient prescribed a controlled substance at d/c from ED?: No Referrals: Sam Briones MD [Primary Care Provider] - 1-2 days Time of Disposition: 20:52
[2022-01-20 20:14] LABS: Basophils # (A) 0.1 k/uL (0-0.2); Basophils % (A) 1 %; Eosinophils # (A) 0.2 k/uL (0-0.7); Eosinophils % (A) 2 %; HCT 46.6 % (34.0-46.0); HGB 15.5 gm/dL (11.4-16.0); Lymphocytes # (A) 2.3 k/uL (1.0-4.8); Lymphocytes % (A) 25 %; MCHC 33.3 g/dL (31.0-37.0); Mean Platelet Volume 7.8; Monocytes # (A) 0.5 k/uL (0-1.0); Monocytes % (A) 5 %; Neutrophils # (A) 6.1 k/uL (1.3-7.7); Neutrophils % (A) 65 %; Platelet Count 250 k/uL (150-450); RBC 5.36 m/uL (3.80-5.40); RDW 12.6 % (11.5-15.5); WBC 9.4 k/uL (3.8-10.6)
[2022-01-20 20:33] LABS: HCG,Qualitative Serum Not Detected
[2022-01-20 20:35] LABS: ALT 24 U/L (4-34); AST 29 U/L (14-36); African American GFR (CKD) >90 (>60 ml/min/1.73 sqM); Albumin 4.4 g/dL (3.5-5.0); Alkaline Phosphatase 102 U/L (38-126); Anion Gap 8 mmol/L; Blood Urea Nitrogen 14 mg/dL (7-17); Calcium 9.3 mg/dL (8.4-10.2); Carbon Dioxide 22 mmol/L (22-30); Chloride 107 mmol/L (98-107); Glucose 134 mg/dL (74-99); Magnesium 1.9 mg/dL (1.6-2.3); Non-African American GFR(CKD) >90 (>60 ml/min/1.73 sqM); Potassium 4.2 mmol/L (3.5-5.1); Sodium 137 mmol/L (137-145); Total Bilirubin 0.2 mg/dL (0.2-1.3); Total Protein 7.4 g/dL (6.3-8.2)
[2022-01-20 21:55] VITALS: BP 139/74; PULSE 69
== END 2022-01-20 21:55 | disposition home or self-care (01) ==
LOC: EC 19:27
DX: R55 Syncope and collapse (principal); K21.9 Gastro-esophageal reflux disease without esophagitis; I10 Essential (primary) hypertension; F17.200 Nicotine dependence, unspecified, uncomplicated; Z79.810 Long term (current) use of selective estrogen receptor modulators (SERMs); Z79.83 Long term (current) use of bisphosphonates; Z79.899 Other long term (current) drug therapy
CPT/HCPCS: 36415; 80053; 83735; 84703; 85025; 93005; 96360; 99284

== ENCOUNTER → 2022-02-08 | Outpatient (CLI) | payer OTHER ==
--- NOTE | 2022-02-08 15:05 | US ---
EXAMINATION TYPE: US thyroid st tissue head/neck DATE OF EXAM: 02/08/2022 COMPARISON: NONE CLINICAL HISTORY: E03.8 HYPOTHYROIDISM. Hypothyroidism. GLAND SIZE: Right Lobe: 6.1 x 2.2 x 1.9 cm Overall Parenchyma: Very heterogeneous. Left Lobe: 5.8 x 2.0 x 2.1 cm Overall Parenchyma: Very heterogeneous. Isthmus Thickness: 0.48 cm NODULES RIGHT: # of nodules measured on right: 0 LEFT: # of nodules measured on left: 1 1. 0.8 X 0.7 x 0.6 cm, mid mid, mixed cystic and solid, hypoechoic nodule, which is wider than tall , with smooth margins, without echogenic foci. Prior size: No prior ISTHMUS: # of nodules measured in the isthmus: 0 Bilateral neck scanned, no evidence of lymphadenopathy. IMPRESSION: 1. No suspicious nodules 2017 ACR TI-RADS LEVEL: TR-RADS 3 - Mildly Suspicious: Follow if > 1.5 cm, FNA if > 2.5 cm *Highest TI-RADS level nodule reported
== END | disposition home or self-care (01) ==
LOC: RADUSWWP 13:42
PROVIDERS: ATTEND Internal Medicine
DX: E03.8 Other specified hypothyroidism (principal); E04.1 Nontoxic single thyroid nodule
CPT/HCPCS: 76536

== ENCOUNTER → 2022-02-26 | Outpatient (CLI) | payer OTHER ==
[2022-02-26 19:16] LABS: Total Protein,CSF 56 mg/dL (12-60)
[2022-02-26 20:12] LABS: Appearance,CSF Clear; CSF Tube Number 3; Red Blood Cell,CSF 0 u/L (0-10)
[2022-02-26 20:14] LABS: Nucleated Cells, CSF 2 u/L (0-5)
== END | disposition home or self-care (01) ==
LOC: LABWHC1 12:44
PROVIDERS: ATTEND Psychiatry & Neurology Neurology
DX: E55.9 Vitamin D deficiency, unspecified (principal); R90.82 White matter disease, unspecified
CPT/HCPCS: 36415; 82040; 82042; 82306; 82784; 83873; 83916; 84157; 87801; 89050

== ENCOUNTER → 2022-04-10 | Outpatient (CLI) | payer OTHER ==
--- NOTE | 2022-04-10 14:55 | MM ---
Reason for Exam: Screening (asymptomatic). Baseline mammogram. Patient History: Menarche at age 12. First Full-Term at age 15. Postmenopausal. Maternal grandmother had breast cancer. Risk Values: Angela 5 year model risk: 0.5%. NCI Lifetime model risk: 6.5%. Prior Study Comparison: Patient's first Mammogram. Tissue Density: The breast tissue is almost entirely fat. Findings: Analyzed By CAD. There is no suspicious group of microcalcifications or new suspicious mass in either breast. Overall Assessment: Negative, BI-RAD 1 Management: Screening Mammogram of both breasts in 1 year. A clinical breast exam by your physician is recommended on an annual basis and results should be correlated with mammographic findings. [facility] will attempt to contact patient to return for supplemental views and ultrasound if indicated. Electronically signed and approved by: Alejandro Gonzalez DO
== END | disposition home or self-care (01) ==
LOC: RADMAMWWP 14:13
PROVIDERS: ATTEND Internal Medicine
DX: Z12.31 Encounter for screening mammogram for malignant neoplasm of breast (principal); Z78.0 Asymptomatic menopausal state; Z80.3 Family history of malignant neoplasm of breast
CPT/HCPCS: 77067

== ENCOUNTER → 2023-03-17 | Outpatient (CLI) | payer OTHER ==
--- NOTE | 2023-03-17 16:28 | US ---
EXAMINATION TYPE: US thyroid st tissue head/neck DATE OF EXAM: 03/17/2023 COMPARISON: NONE CLINICAL INDICATION: Female, 42 years old with history of E04.1 NONTOXIC SINGLE THYROID NODULE; hypot hyroidism, on medication for years, no symptoms GLAND SIZE: Right Lobe: 6.1 x 2.2 x 1.9 cm Overall Parenchyma: heterogenous Left Lobe: 5.8 x 2.0 x 2.1 cm Overall Parenchyma: heterogenous Isthmus Thickness: 0.5 cm NODULES RIGHT: # of nodules measured on right: 0 LEFT: # of nodules measured on left: 1 -may be a lymph node.. Parathyroid small thyroid nodule co uld be considered within the differential. 1. 0.7 X 0.7 x 0.4 cm, lower mid, mixed cystic and solid, hyperechoic nodule, which is wider than t all, with smooth margins, without echogenic foci. Prior size: 0.8 x 0.7 x 0.5 cm ISTHMUS: # of nodules measured in the isthmus: 0 Bilateral neck scanned, no evidence of lymphadenopathy. IMPRESSION: Subcentimeter nodule inferior to the left lobe thyroid. ParaThyroid and small lymph node could be co nsidered. Consider follow-up.
== END | disposition home or self-care (01) ==
LOC: RADUSWWP 13:04
PROVIDERS: ATTEND Internal Medicine
DX: E04.1 Nontoxic single thyroid nodule (principal); E03.9 Hypothyroidism, unspecified
CPT/HCPCS: 76536

== ENCOUNTER → 2023-05-19 | Outpatient (CLI) | payer OTHER ==
--- NOTE | 2023-05-19 14:07 | MM ---
Reason for Exam: Clinical finding. Last mammogram was performed 1 year(s) and 1 month(s) ago. Patient History: Menarche at age 12. First Full-Term at age 15. Postmenopausal. Maternal grandmother had breast cancer. Risk Values: Angela 5 year model risk: 0.5%. NCI Lifetime model risk: 6.4%. Prior Study Comparison: 04/10/2022 Bilateral MG screening mammo w CAD, [facility]. Tissue Density: There are scattered areas of fibroglandular density. Findings: Analyzed By CAD. No significant change from prior exams. There is a palpable marker placed along the superior aspect of the right breast and 2 on the left. No underlying discrete abnormality is seen. Overall Assessment: Incomplete: need additional imaging evaluation, BI-RAD 0 Management: Diagnostic Breast Ultrasound of both breasts. Targeted to the palpable sites. Electronically signed and approved by: Angelito Mendez M.D. Radiologist
--- NOTE | 2023-05-19 14:41 | USB ---
Reason for Exam: Clinical finding. Patient History: Menarche at age 12. First Full-Term at age 15. Postmenopausal. Maternal grandmother had breast cancer. Risk Values: Angela 5 year model risk: 0.5%. NCI Lifetime model risk: 6.4%. Technique: Method: Targeted. Prior Study Comparison: 04/10/2022 Bilateral MG screening mammo w ERON, [facility]. Findings: The area of palpable concern of both breasts, the axilla of both breasts and the retroareolar of both breasts were scanned. Targeted bilateral breast ultrasound of the patient's palpable sites. Additional scanning in the subareolar region and axilla. Right breast 1:00 position, 13 cm from the nipple shows a benign, 3.0 cm circumscribed isoechoic mass with through transmission most compatible with a benign lipoma. Left breast, 1:00 position at the palpable site shows a similar benign 3.9 x 2.9 x 0.8 cm lipoma at the palpable site. The second palpable site shows no discrete finding. No other solid or cystic lesion or axillary lymphadenopathy. Overall Assessment: Benign, BI-RAD 2 Management: Screening Mammogram of both breasts in 1 year. Further clinical follow-up of patient's palpable lipomas measuring up to 3.9 cm. If any enlarging palpable area is detected, the patient to be rescanned. A clinical breast exam by your physician is recommended on an annual basis and results should be correlated with mammographic findings. This exam should not preclude additional follow-up of suspicious palpable abnormalities. Results were given to the patient verbally at the time of exam. Electronically signed and approved by: Angelito Mendez M.D. Radiologist
== END | disposition home or self-care (01) ==
LOC: RADMAMWWP 13:41
PROVIDERS: ATTEND Internal Medicine
DX: N63.12 Unspecified lump in the right breast, upper inner quadrant (principal); N63.21 Unspecified lump in the left breast, upper outer quadrant; R92.323 Mammographic fibroglandular density, bilateral breasts; Z80.3 Family history of malignant neoplasm of breast; Z78.0 Asymptomatic menopausal state
CPT/HCPCS: 77066; 76642; G0279; 77062

== ENCOUNTER → 2023-05-26 | Outpatient (CLI) | payer OTHER ==
--- NOTE | 2023-05-26 09:10 | US ---
EXAMINATION TYPE: US abdomen limited DATE OF EXAM: 05/26/2023 COMPARISON: NONE CLINICAL INDICATION: Female, 43 years old with history of R74.8 Abn phosphatase level; abn labs TECHNIQUE: Multiple sonographic images of the right upper quadrant are obtained. FINDINGS: EXAM MEASUREMENTS: Liver Length: 16.9 cm Gallbladder Wall: .2 cm CBD: .7 cm Right Kidney: 10.5 X 4.9 X 4.3 cm [employer] NOTES: Pancreas: Obscured by bowel gas Liver: Increased attenuation Gallbladder: 1.7 cm stone visualized Evidence for sonographic Skelton's sign: no CBD: wnl Right Kidney: No hydronephrosis or masses seen. IMPRESSION: Hepatic steatosis without evidence for mass.
== END | disposition home or self-care (01) ==
LOC: RADUSWWP 07:52
PROVIDERS: ATTEND Internal Medicine
DX: K76.0 Fatty (change of) liver, not elsewhere classified (principal); R74.8 Abnormal levels of other serum enzymes
CPT/HCPCS: 76705

== ENCOUNTER → 2023-07-03 | Outpatient (CLI) | payer OTHER ==
--- NOTE | 2023-07-04 07:31 | US ---
EXAMINATION TYPE: US thyroid st tissue head/neck DATE OF EXAM: 07/03/2023 COMPARISON: US 03/17/23 CLINICAL INDICATION: Female, 43 years old with history of E04.1 THYROID NODULE; Left thyroid nodule f /u GLAND SIZE: Right Lobe: 5.1x1.8x1.8 cm Overall Parenchyma: heterogeneous Left Lobe: 5.3x2.0x1.8 cm Overall Parenchyma: heterogeneous Isthmus Thickness: 0.5 cm NODULES RIGHT: # of nodules measured on right: 0 LEFT: # of nodules measured on left: 1 1. 0.7 X 0.5 x 0.7 cm, mid mid, solid or almost completely solid, isoechoic nodule, which is wider than tall, with smooth margins, without echogenic foci. Prior size: 0.7 x 0.7 x 0.4 cm ISTHMUS: # of nodules measured in the isthmus: 0 Bilateral neck scanned, no evidence of lymphadenopathy. IMPRESSION: 1. Stable TR3, 7 mm left thyroid nodule 2. No nodules in the right lobe of the thyroid gland or isthmus 3. No thyromegaly 2017 ACR TI-RADS LEVEL: 3 *Highest TI-RADS level nodule reported
== END | disposition home or self-care (01) ==
LOC: RADUSWWP 14:38
PROVIDERS: ATTEND Internal Medicine
DX: E04.1 Nontoxic single thyroid nodule (principal)
CPT/HCPCS: 76536